=== PATIENT | female | born 1950 | race Caucasian/White ===

== ENCOUNTER 2017-01-31 12:29 | Inpatient (IN) | payer BC ==
[~2017-01-31] VITALS: Ht 160 cm; Wt 80.0 kg
[2017-01-31] MEDS ORDERED: IPRATROPIUM (NEB) 0.5 MG/2.5 ML AMP NEB STA (12:37)
[2017-01-31] MEDS ORDERED: ALBUTEROL 0.083% (NEB) 2.5 MG/3 ML AMP NEB STA (12:37)
[2017-01-31] MEDS ORDERED: DILTIAZEM 25 MG INJ IV ONE (13:00)
[2017-01-31 13:05] LABS: BASOPHILS % 0.2 % (0.0-2.0); EOSINOPHILS # 0.1 10^3/ul (0.0-0.5); HEMATOCRIT 41.1 % (37.0-47.0); HEMOGLOBIN 12.6 g/dl (12.0-16.0); LYMPHOCYTES # 2.6 10^3/ul (0.8-2.9); LYMPHOCYTES % 25.6 % (15.0-51.0); MEAN CORPUSCULAR HEMOGLOBIN 25.9 pg (29.0-33.0); MEAN CORPUSCULAR HGB CONC 30.7 g/dl (32.0-37.0); MEAN CORPUSCULAR VOLUME 84.4 fl (82.0-101.0); MEAN PLATELET VOLUME 10.7 fl (7.4-10.4); MONOCYTE # 0.7 10^3/ul (0.3-0.9); MONOCYTES % 6.4 % (0.0-11.0); NEUTROPHILS % 66.4 % (39.0-77.0); PLATELET COUNT 252 10^3/UL (140-415); RED BLOOD COUNT 4.87 10^6/ul (4.20-5.40); RED CELL DISTRIBUTION WIDTH 14.2 % (11.5-14.5); WHITE BLOOD COUNT 10.2 10^3/ul (4.8-10.8)
[2017-01-31 13:21] LABS: INR 1.04; PROTIME 13.6 Sec (12.2-14.2); PT RATIO 1.1
[2017-01-31 13:23] LABS: PARTIAL THROMBOPLASTIN TIME 31.2 Sec (25.0-35.0)
[2017-01-31 13:34] LABS: ANION GAP 14 (8-16); BLOOD UREA NITROGEN 19 mg/dl (7-20); CALCIUM 8.9 mg/dl (8.4-10.2); CARBON DIOXIDE 26 mmol/L (21-31); CHLORIDE 105 mmol/L (97-110); CREATININE 0.59 mg/dl (0.44-1.00); GLUCOSE 135 mg/dl (70-220); POTASSIUM 3.8 mmol/L (3.5-5.1); SODIUM 141 mmol/L (135-144)
--- NOTE | 2017-01-31 13:34 | RADRPT ---
PROCEDURE: Chest x-ray CLINICAL INDICATION: Chest pain TECHNIQUE: Chest single view COMPARISON: None FINDINGS: There is mild cardiomegaly. Mild interstitial CHF is seen. The pulmonary vessels are normal in slick iber. The lungs are clear. The costophrenic angles are sharp. The visualized bony thorax is unrem arkable. IMPRESSION: 1. Cardiomegaly with mild interstitial CHF RPTAT: HH .Yury Valdivia MD, MD Date Time Electronically viewed and signed by .Yury Valdivia MD, on 01/31/2017 13:33 .W/
[2017-01-31 13:39] LABS: B-TYPE NATRIURETIC PEPTIDE 820 PG/ML (0-125)
[2017-01-31 13:41] LABS: TROPONIN-I < 0.012 ng/ml (0.00-0.12)
[2017-01-31] MEDS ORDERED: ASPIRIN 81 MG TAB PO ONE (14:00)
[2017-01-31] MEDS ORDERED: FUROSEMIDE 20 MG INJ IV ONE (14:00)
--- NOTE | 2017-01-31 14:22 | ERA ---
ER Documentation Chief Complaint Date/Time DATE: 01/31/17 TIME: 14:18 Chief Complaint SOB WITH WHEEZING WHILE AT URGENT CARE. SENT HERE FOR FURTHER EVAL. 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 The patient was sent for further evaluation from an urgent care because of wheezing. She denies history of asthma. She states that she has had these symptoms for "some time I do not know how long ". Patient describes bilateral lower extremity swelling. She is also found to be in atrial fibrillation and is unsure if this is new or old. She states that she does not take blood thinning medication. Additionally she states that she is having vaginal bleeding. She is unsure for how long. The patient is not a very good historian. ROS All systems reviewed and are negative except as per history of present illness. Medications Home Meds No Active Prescriptions or Reported Meds Allergies Allergies: Coded Allergies: No Known Allergy (Unverified , 01/31/17) PMhx/Soc Medical and Surgical Hx: pt denies Medical Hx, pt denies Surgical Hx Hx Alcohol Use: No Hx Substance Use: No Hx Tobacco Use: No Smoking Status: Never smoker FmHx Family History: No diabetes Physical Exam Vitals Vital Signs Date Time Temp Pulse Resp B/P Pulse Ox O2 Delivery O2 Flow Rate FiO2 01/31/17 13:16 102 22 97 01/31/17 13:12 Nasal Cannula 01/31/17 12:36 98.6 132 21 127/68 97 Physical Exam General: Well developed, well nourished, no acute distress Head: Normocephalic, atraumatic. Eyes: Pupils equally reactive, EOM intact ENT: Moist mucous membranes Neck: Supple, no lymphadenopathy Respiratory: Scant wheezing bilaterally, no distress Cardiovascular: Irregularly irregular, tachycardia, no murmurs, rubs, or gallops Abdominal: Soft, non-tender, non-distended, no peritoneal signs : Deferred MSK: No edema, no unilateral swelling, 5/5 strength Neurologic: Alert and oriented, moving all extremities, normal speech, no focal weakness, no cerebellar signs Skin: No rash Psych: Normal mood Result Diagram: 01/31/17 1255 01/31/17 1255 Results 24 hrs Laboratory Tests Test 01/31/17 12:55 White Blood Count 10.210^3/ul Red Blood Count 4.8710^6/ul Hemoglobin 12.6g/dl Hematocrit 41.1% Mean Corpuscular Volume 84.4fl Mean Corpuscular Hemoglobin 25.9pg Mean Corpuscular Hemoglobin Concent 30.7g/dl Red Cell Distribution Width 14.2% Platelet Count 13122^3/UL Mean Platelet Volume 10.7fl Neutrophils % 66.4% Lymphocytes % 25.6% Monocytes % 6.4% Eosinophils % 1.0% Basophils % 0.2% Nucleated Red Blood Cells % 0.0/100WBC Neutrophils # (Manual) 6.710^3/ul Lymphocytes # 2.610^3/ul Monocytes # 0.710^3/ul Eosinophils # 0.110^3/ul Basophils # 0.010^3/ul Nucleated Red Blood Cells # 0.010^3/ul Prothrombin Time 13.6Sec Prothrombin Time Ratio 1.1 INR International Normalized Ratio 1.04 Activated Partial Thromboplast Time 31.2Sec Sodium Level 141mmol/L Potassium Level 3.8mmol/L Chloride Level 105mmol/L Carbon Dioxide Level 26mmol/L Anion Gap 14 Blood Urea Nitrogen 19mg/dl Creatinine 0.59mg/dl Glucose Level 135mg/dl Calcium Level 8.9mg/dl Troponin I < 0.012ng/ml B-Type Natriuretic Peptide 820PG/ML Current Medications Medications (Trade) Dose Ordered Sig/Gil Route PRN Reason Start Time Stop Time Status Last Admin Dose Admin Albuterol (Proventil 0.083% (Neb)) 2.5 mg ONCE STAT NEB 01/31/17 12:37 01/31/17 12:38 DC 01/31/17 13:14 Ipratropium [place] (Atrovent 0.02% (Neb)) 0.5 mg ONCE STAT NEB 01/31/17 12:37 01/31/17 12:38 DC 01/31/17 13:14 Diltiazem HCl (Cardizem Iv) 10 mg ONCE ONCE IV 01/31/17 13:00 01/31/17 13:01 DC 01/31/17 13:04 Aspirin (Aspirin) 324 mg ONCE ONCE PO 01/31/17 14:00 01/31/17 14:01 DC 01/31/17 14:12 Furosemide (Lasix) 20 mg ONCE ONCE IV 01/31/17 14:00 01/31/17 14:01 DC 01/31/17 14:12 Ondansetron HCl (Zofran Inj) 4 mg ER BRIDGE PRN IV NAUSEA AND/OR VOMITING 01/31/17 14:30 02/01/17 14:29 Acetaminophen (Tylenol Tab) 650 mg ER BRIDGE PRN PO MILD PAIN/FEVER 01/31/17 14:30 02/01/17 14:29 Procedures/MDM EKG, MONITORS, & DIAGNOSTIC IMAGING: EKG: I reviewed and interpreted a 12-lead EKG. Rhythm: Atrial fibrillation with rapid ventricular response ectopy: None Intervals: No abnormalities ST segments: No elevations or depressions T waves: No contiguous inversions Chest x-ray: I reviewed and interpreted a 1 view of the chest Mediastinum: No enlargement Cardiac silhouette: cardiomegaly Airspace: Interstitial process and pulmonary edema bones: No evidence of fracture LAB INTERPRETATION: Negative troponin, elevated BNP MEDICAL DECISION MAKING: The patient presents with signs and symptoms concerning for CHF, possibly new onset atrial fibrillation with RVR. The patient is a very poor historian and cannot describe her history. She is unsure what medication she takes and does not have them with her. She has never been here before. Additionally the patient is having postmenopausal vaginal bleeding. She has no evidence of symptomatic anemia however the patient was advised she needs to follow-up with an REPAIRER EVAPORATOR for hysteroscopy and biopsy to rule out malignancy. ER COURSE: The patient was given Cardizem 10 mg IV with rate control. The patient was also given Lasix and aspirin. The patient will benefit from hospitalization for further evaluation, echocardiogram. The patient also requires risk stratification for anticoagulation. Given her limited history, unknown cardiomyopathy or bleeding risk factors I cannot make accurate decision in the emergency department as to anticoagulation, different inpatient team would be appropriate. I kept the patient and/or family informed of laboratory and diagnostic imaging results throughout the emergency room course. DISPOSITION PLAN: Telemetry admission for management of A. fib with RVR, CHF CONSULTATION: Accepting care team and consultations: I discussed the current laboratory data, diagnostic imaging and emergency care provided. Admitting team: Dr. Gilbert Admitting team indication: Insurance directed Departure Diagnosis: Primary Impression: Shortness of breath Additional Impressions: CHF (congestive heart failure) Qualified Code: I50.9 - Acute congestive heart failure, unspecified congestive heart failure type Atrial fibrillation with rapid ventricular response Postmenopausal vaginal bleeding Condition: Stable BORM, SHAN A., MD Jan 31, 2017 14:22
[2017-01-31] MEDS ORDERED: ACETAMINOPHEN 325 MG TAB PO PRN ×2 (14:30→18:30)
[2017-01-31] MEDS ORDERED: ONDANSETRON 4 MG INJ IV PRN ×2 (14:30→18:30)
[2017-01-31] MEDS ORDERED: ALBUTEROL/IPRATROPIUM (NEB) 3 ML AMP HHN PRN (18:30)
[2017-01-31] MEDS ORDERED: MAGNESIUM HYDROXIDE 30ML CUP PO PRN (18:30)
[2017-01-31] MEDS ORDERED: NA PHOSPHATE/BIPHOS 133 ML ENEMA PR PRN (18:30)
[2017-01-31] MEDS ORDERED: NITROGLYCERIN (SL) 0.4 MG TAB SL PRN (18:30)
[2017-01-31] MEDS ORDERED: NACL 0.9% 3 ML SYG IV SCH (18:30)
[2017-01-31] MEDS ORDERED: HYDROCODONE/APAP (5/325) TAB PO PRN (18:30)
[2017-01-31] MEDS ORDERED: LORAZEPAM 2 MG INJ IV PRN (18:30)
[2017-01-31] MEDS ORDERED: morphine 2 MG INJ IV PRN (18:30)
[2017-01-31] MEDS ORDERED: hydrALAzine 20 MG INJ IV PRN (18:30)
[2017-01-31 19:46] LABS: CREATINE KINASE 173 IU/L (23-200)
[2017-01-31 19:59] LABS: CK-MB 1.59 ng/ml (0.0-2.4)
[2017-01-31 20:07] LABS: TROPONIN-I < 0.012 ng/ml (0.00-0.12)
[2017-01-31 20:14] VITALS: PULSE 94
--- NOTE | 2017-01-31 20:20 | HP ---
DATE OF ADMISSION: 01/31/2017 CHIEF COMPLAINT: Chest pain, shortness of breath. HISTORY OF PRESENT ILLNESS: This is a 66-year-old female with a past medical history of hypertension and anxiety, who has been having shortness of breath symptoms going on for the last few days. She also has been feeling some mild palpitations. Denies any headaches or dizziness or loss of consciousness. No upper GI bleeding. No nausea or vomiting. No fevers or chills. She has been complaining, however, of vaginal bleeding for the last few days that appears to be new. She decided to come to the ER today, but not before going to an urgent care because she was complaining of some wheezing symptoms, but denies any history of any asthma. She has also noted some lower extremity swelling as well that appears to be new. When she came in to the ER today, she was found with signs of fluid in her chest x-ray, cardiomegaly with mild interstitial CHF, and was given Lasix in the ER. As well, she was found to be in atrial fibrillation with RVR and was given Cardizem, which helped bring her heart rate down to the normal range. PAST MEDICAL HISTORY: As above. ALLERGIES: NO KNOWN DRUG ALLERGIES. HOME MEDICATIONS: None. PAST SURGICAL HISTORY: She had varicose vein surgery 14 days ago. She has had a hysterectomy in the past. FAMILY HISTORY: Noncontributory. SOCIAL HISTORY: Negative for smoking, drinking, IV drug abuse. Vital signs T-max 98.6, pulse 94, 132, respirations 18, and 21, blood pressure is 136/71, sating 99 percent 2 L nasal cannula. PHYSICAL EXAMINATION: VITAL SIGNS: T-max 98.6, pulse 94 to 132, respirations 18 to 21, blood pressure 136/71, sating 99 percent on 2 L nasal cannula. GENERAL: Patient is a female lying in bed, obese, in no acute distress. HEENT: Pupils equal, round, react to light. Extraocular muscles intact. NECK: Supple. No thyromegaly. LUNGS: Slight crackles heard in the bilateral bases. No wheezes. CARDIOVASCULAR: S1, S2 heard, irregular. ABDOMEN: Soft, nontender, nondistended. Normal bowel sounds. No rebound or guarding. MUSCULOSKELETAL: One plus pitting edema bilateral lower extremities to mid calf. NEUROLOGIC: No focal deficits. LABORATORY DATA: CBC is normal. The basic metabolic panel is normal. The BNP is 822. Troponins negative times 1. Coags are normal. ASSESSMENT AND PLAN: A 66-year-old female coming in with congestive heart failure and atrial fibrillation with rapid ventricular rate, also with vaginal bleeding. 1. Shortness of breath secondary to combination of congestive heart failure and possibly atrial fibrillation. Admit the patient to telemetry floor, check TSH and lipid panel. Started on Cardizem. Will continue that, titrate to keep the heart rate less than 100. Will get a cardiology consult, check 2D echocardiogram as well, put her on Lasix, keep head of bed greater than 30 degrees, morphine, oxygen, nitroglycerin p.r.n., monitor ins and outs, get PT consult as well. 2. Anxiety. Ativan p.r.n. 3. Vaginal bleeding. Will get a pelvic ultrasound. 4. Hold all anticoagulants as well. Dictated By: Sonny Gilbert MD /[email or web address] /Document#: [id number]
[2017-01-31 20:54] VITALS: BP 98/56; RESP 18
[2017-01-31 21:00] VITALS: Ht 160 cm; Wt 80.0 kg
[2017-01-31] MEDS ORDERED: HEPARIN 5,000 UNIT/0.5 ML VIAL SC SCH (21:00)
[2017-01-31] MEDS: DILTIAZEM-D5W 125MG/125ML DRIP 125 ML IV SCH (21:28)
[2017-02-01] VITALS (14 sets, daily range): BP systolic 97–164; BP diastolic 59–88; PULSE 65–101; RESP 18–20
[2017-02-01 01:39] LABS: CREATINE KINASE 208 IU/L (23-200)
[2017-02-01 01:52] LABS: CK-MB 1.33 ng/ml (0.0-2.4)
[2017-02-01 01:53] LABS: TROPONIN-I < 0.012 ng/ml (0.00-0.12)
[2017-02-01] MEDS: PANTOPRAZOLE (EC) 40 MG TAB PO SCH (06:16)
[2017-02-01 07:46] LABS: BASOPHILS % 0.1 % (0.0-2.0); EOSINOPHILS # 0.1 10^3/ul (0.0-0.5); EOSINOPHILS % 1.7 % (0.0-7.0); HEMATOCRIT 39.9 % (37.0-47.0); HEMOGLOBIN 12.5 g/dl (12.0-16.0); LYMPHOCYTES # 2.1 10^3/ul (0.8-2.9); LYMPHOCYTES % 28.4 % (15.0-51.0); MEAN CORPUSCULAR HEMOGLOBIN 26.5 pg (29.0-33.0); MEAN CORPUSCULAR HGB CONC 31.3 g/dl (32.0-37.0); MEAN CORPUSCULAR VOLUME 84.7 fl (82.0-101.0); MEAN PLATELET VOLUME 10.9 fl (7.4-10.4); MONOCYTE # 0.5 10^3/ul (0.3-0.9); NEUTROPHILS % 63.5 % (39.0-77.0); PLATELET COUNT 238 10^3/UL (140-415); RED BLOOD COUNT 4.71 10^6/ul (4.20-5.40); WHITE BLOOD COUNT 7.5 10^3/ul (4.8-10.8)
[2017-02-01 08:16] LABS: CALCIUM 8.6 mg/dl (8.4-10.2); CHOL/HDL RATIO 3.8 RATIO; CREATININE 0.55 mg/dl (0.44-1.00); MAGNESIUM 1.9 mg/dl (1.7-2.5); POTASSIUM 4.1 mmol/L (3.5-5.1)
--- NOTE | 2017-02-01 08:29 | RADRPT ---
PROCEDURE: US Pelvis. CLINICAL INDICATION: Postmenopausal bleeding. TECHNIQUE: Multiple sonographic images of the pelvis were obtained utilizing hampton scale, Doppler a nd color flow imaging with transabdominal and endovaginal technique. The images were reviewed on a PACS workstation. COMPARISON: None. FINDINGS: The uterus is visualized and measures 11.4 x 5.9 x 7.3 cm. The endometrial echo complex measures 25. 4 mm in thickness. A 7 mm hypoechoic nodular echogenicity is identified in the superior aspect of th e endometrium. No vascularity is seen in this lesion. The ovaries are not well visualized. No adnexal masses or pelvic free fluid are noted. IMPRESSION: Markedly thickened endometrium for a postmenopausal woman. Endometrial malignancy is not excluded. Consultation with gynecology and potentially correlation with endometrial biopsy is recommended. 7 mm hypoechoic nodular echogenicity in the superior aspect of the endometrium. This could reflect focal clot versus a small submucosal fibroid or potentially endometrial polyp. Ovaries not well visualized. If characterization of this structure is needed repeat exam or MRI is r ecommended. If further characterization of the organs of the pelvis is needed MRI should be considered. RPTAT: AA .Fernando Angel MD, MD Date Time Electronically viewed and signed by .Fernando Angel MD, MD on 02/01/2017 08:28 .P/
[2017-02-01 09:41] LABS: THYROID STIMULATING HORMONE 1.5 MIU/L (0.465-4.680)
[2017-02-01] MEDS: FUROSEMIDE 40 MG INJ IV SCH (11:16)
[2017-02-01] MEDS: DILTIAZEM 60 MG TAB PO SCH ×2 (15:20→21:50)
--- NOTE | 2017-02-01 16:11 | PN ---
Date/Time of Note Date/Time of Note DATE: 02/01/17 TIME: 15:59 Assessment/Plan VTE Prophylaxis VTE Prophylaxis Intervention: contraindicated Lines/[facility]ters [facility] [place] Assessment/Plan Chief Complaint/Hosp Course ASSESSMENT AND PLAN: A 66-year-old female coming in with congestive heart failure and atrial fibrillation with rapid ventricular rate, also with vaginal bleeding. 1. Shortness of breath - secondary to combination of congestive heart failure and possibly atrial fibrillation. Troponins are negative 3, still waiting for official echocardiogram report. Per discussion with cardiology team today, will also recommend getting a d-dimer to rule out PE. Getting IV Lasix as well has less shortness of breath symptoms overall. -Follow-up TSH and lipid panel. -We will put back patient on IV Cardizem, also now on p.o. Cardizem as well, monitor heart rate will continue that, titrate to keep the heart rate less than 100. -Continue Lasix for CHF, follow-up echocardiogram report, keep head of bed greater than 30 degrees, morphine, oxygen, nitroglycerin p.r.n., monitor ins and outs -We will follow up PT consult as well. 2. Anxiety. Ativan p.r.n. 3. Vaginal bleeding -appreciate [facility] consult recommendations, based on what the pelvic ultrasound showed. -They are recommending DNC procedure tomorrow with possible endometrial biopsy to rule out any malignancy. -Hold all anticoagulants as well. Problems: Subjective 24 Hr Interval Summary Free Text/Dictation Patient seen by cardiology and [facility] team today, just in the last few minutes has gone back into atrial fibrillation with RVR. Exam/Review of Systems Vital Signs Vitals Vital Signs Date Time Temp Pulse Resp B/P Pulse Ox O2 Delivery O2 Flow Rate FiO2 02/01/17 15:41 98.0 122 18 137/88 96 01/31/17 13:12 Nasal Cannula Intake and Output 01/31/17 01/31/17 02/01/17 15:00 23:00 07:00 Intake Total 140 ml Balance 140 ml Exam GENERAL: Patient is a female lying in bed, obese, in no acute distress. HEENT: Pupils equal, round, react to light. Extraocular muscles intact. NECK: Supple. No thyromegaly. LUNGS: Slight crackles heard in the bilateral bases. No wheezes. CARDIOVASCULAR: S1, S2 heard, irregular. ABDOMEN: Soft, nontender, nondistended. Normal bowel sounds. No rebound or guarding. MUSCULOSKELETAL: One plus pitting edema bilateral lower extremities to mid calf. NEUROLOGIC: No focal deficits. Results Result Diagram: 02/01/17 0715 02/01/17 0717 Results 24 hrs Laboratory Tests Test 01/31/17 18:28 01/31/17 19:16 02/01/17 00:38 02/01/17 07:15 Free Thyroxine 0.81 Creatine Kinase 173 208 H Creatine Kinase Index 0.9 0.6 Creatinine Kinase MB (Mass) 1.59 1.33 Troponin I < 0.012 < 0.012 White Blood Count 7.5 # Red Blood Count 4.71 Hemoglobin 12.5 Hematocrit 39.9 Mean Corpuscular Volume 84.7 Mean Corpuscular Hemoglobin 26.5 L Mean Corpuscular Hemoglobin Concent 31.3 L Red Cell Distribution Width 14.0 Platelet Count 238 Mean Platelet Volume 10.9 H Neutrophils % 63.5 Lymphocytes % 28.4 Monocytes % 6.0 Eosinophils % 1.7 Basophils % 0.1 Nucleated Red Blood Cells % 0.0 Neutrophils # (Manual) 4.8 Lymphocytes # 2.1 Monocytes # 0.5 Eosinophils # 0.1 Basophils # 0.0 Nucleated Red Blood Cells # 0.0 Hemoglobin A1c 6.5 H Test 02/01/17 07:17 Sodium Level 141 Potassium Level 4.1 Chloride Level 105 Carbon Dioxide Level 26 Anion Gap 14 Blood Urea Nitrogen 16 Creatinine 0.55 Glucose Level 92 # Calcium Level 8.6 Phosphorus Level 4.0 Magnesium Level 1.9 Triglycerides Level 82 Cholesterol Level 111 LDL Cholesterol, Calculated 66 HDL Cholesterol 29 L Cholesterol/HDL Ratio 3.8 Thyroid Stimulating Hormone (TSH) 1.500 Medications Medications Current Medications Ondansetron HCl (Zofran Inj) 4 mg Q6H PRN IV NAUSEA AND/OR VOMITING; Start 01/31 at 18:30 Acetaminophen (Tylenol Tab) 650 mg Q6H PRN PO PAIN LEVEL 1-3 OR FEVER; Start at 18:30 Acetaminophen/ Hydrocodone Bitart ([place] (5/325)) 1 tab Q6H PRN PO MODERATE PAIN LEVEL 4-6; Start 01/31/17 at 18:30 Morphine Sulfate (morphine) 2 mg Q4H PRN IV SEVERE PAIN LEVEL 7-10; Start at 18:30 Docusate Sodium (Colace) 100 mg Q12H PRN PO CONSTIPATION; Start 01/31/17 at 18: 30 Magnesium Hydroxide (Milk Of Mag) 30 ml DAILY PRN PO CONSTIPATION; Start at 18:30 Sodium Biphosphate/ Sodium Phosphate (Fleet Enema) 133 ml DAILY PRN OR CONSTIPATION; Start 01/31/17 at 18:30 Pantoprazole (Protonix Tab) 40 mg DAILY@06 PO Last administered on 02/01/17 06: 16; Admin Dose 40 MG; Start 02/01/17 at 06:00 Lorazepam (Ativan) 0.5 mg Q6H PRN IV ANXIETY; Start 01/31/17 at 18:30 Hydralazine HCl (Apresoline) 10 mg Q6H PRN IV ELEVATED BLOOD PRESSURE; Start at 18:30 Nitroglycerin (Nitroglycerin (Sl Tab) 0.4 Mg) 1 tab Q5M PRN SL ANGINA; Start at 18:30 Furosemide 40 mg 40 mg DAILY IV Last administered on 02/01/17 11:16; Admin Dose 40 MG; Start 02/01/17 at 09:00 Diltiazem HCl (Cardizem-D5W 125 Mg/125 ml Drip) 125 ml @ 5 mls/hr TITRATE IV Last administered on 01/31/17 21:28; Admin Dose 5 MLS/HR; Start 01/31/17 at 18:30 Diltiazem HCl (Cardizem) 60 mg Q8 PO Last administered on 02/01/17 15:20; Admin Dose 60 MG; Start 02/01/17 at 14:00 AUREA CARTER Feb 01, 2017 16:11
[2017-02-01] MEDS: DILTIAZEM-D5W 125MG/125ML DRIP 125 ML IV SCH ×2 (16:21→16:49)
[2017-02-01 16:36] LABS: D-DIMER 687.01 ng/ml (<460)
--- NOTE | 2017-02-01 17:51 | CONS ---
Date/Time of Note Date/Time of Note DATE: 02/01/17 TIME: 17:31 Consultation Date/Type/Reason Admit Date/Time February 01, 2017 Gynecological consult This patient is a 67 years old 3 para 3 postmenopausal who was admitted in telemetry due to her complaint of shortness of breath and evidence of a tachypnea ,arrhythmia and atrial fibrillation or even possible heart failure . 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 The following is a brief description of this patient,s condition by our hospitalist Dr. Gilbert: <CHIEF COMPLAINT: Chest pain, shortness of breath. This is a 66-year-old female with a past medical history of hypertension and anxiety, who has been having shortness of breath symptoms going on for the last few days. She also has been feeling some mild palpitations. Denies any headaches or dizziness or loss of consciousness. No upper GI bleeding. No nausea or vomiting. No fevers or chills. She has been complaining, however, of vaginal bleeding for the last few days that appears to be new. She decided to come to the ER today, but not before going to an urgent care because she was complaining of some wheezing symptoms, but denies any history of any asthma. She has also noted some lower extremity swelling as well that appears to be new. When she came in to the ER today, she was found with signs of fluid in her chest x-ray, cardiomegaly with mild interstitial CHF, and was given Lasix in the ER. As well, she was found to be in atrial fibrillation with RVR and was given Cardizem, which helped bring her heart rate down to the normal range.> On my examination ; she is a fairly obese patient.. Her abdomen is soft .no large mass could be palpated . on pelvic examination vulva and vagina appears to be normal the cervix is fragmented as a result of the previous lacerations the size of the uterus is about 6-7 cm no large mass could be identified on this examination I did not see any blood inside the vagina however patient describes bleeding past few days Laboratory Tests Test 01/31/17 18:28 01/31/17 19:16 02/01/17 00:38 02/01/17 07:15 Free Thyroxine 0.81ng/dl Creatine Kinase 173IU/L 208IU/L Creatine Kinase Index 0.9 0.6 Creatinine Kinase MB (Mass) 1.59ng/ml 1.33ng/ml Troponin I < 0.012ng/ml < 0.012ng/ml White Blood Count 7.510^3/ul Red Blood Count 4.7110^6/ul Hemoglobin 12.5g/dl Hematocrit 39.9% Mean Corpuscular Volume 84.7fl Mean Corpuscular Hemoglobin 26.5pg Mean Corpuscular Hemoglobin Concent 31.3g/dl Red Cell Distribution Width 14.0% Platelet Count 60623^3/UL Mean Platelet Volume 10.9fl Neutrophils % 63.5% Lymphocytes % 28.4% Monocytes % 6.0% Eosinophils % 1.7% Basophils % 0.1% Nucleated Red Blood Cells % 0.0/100WBC Neutrophils # (Manual) 4.810^3/ul Lymphocytes # 2.110^3/ul Monocytes # 0.510^3/ul Eosinophils # 0.110^3/ul Basophils # 0.010^3/ul Nucleated Red Blood Cells # 0.010^3/ul Hemoglobin A1c 6.5% Test 02/01/17 07:17 02/01/17 16:11 Sodium Level 141mmol/L Potassium Level 4.1mmol/L Chloride Level 105mmol/L Carbon Dioxide Level 26mmol/L Anion Gap 14 Blood Urea Nitrogen 16mg/dl Creatinine 0.55mg/dl Glucose Level 92mg/dl Calcium Level 8.6mg/dl Phosphorus Level 4.0mg/dl Magnesium Level 1.9mg/dl Triglycerides Level 82mg/dl Cholesterol Level 111mg/dl LDL Cholesterol, Calculated 66mg/dl HDL Cholesterol 29mg/dl Cholesterol/HDL Ratio 3.8RATIO Thyroid Stimulating Hormone (TSH) 1.500MIU/L D-Dimer 687.01ng/ml D-Dimer Comment Current Medications Medications (Trade) Dose Ordered Sig/Gil Route PRN Reason Start Time Stop Time Status Last Admin Dose Admin Albuterol (Proventil 0.083% (Neb)) 2.5 mg ONCE STAT NEB 01/31/17 12:37 01/31/17 12:38 DC 01/31/17 13:14 2.5 MG Ipratropium Lorida (Atrovent 0.02% (Neb)) 0.5 mg ONCE STAT NEB 01/31/17 12:37 01/31/17 12:38 DC 01/31/17 13:14 0.5 MG Diltiazem HCl (Cardizem Iv) 10 mg ONCE ONCE IV 01/31/17 13:00 01/31/17 13:01 DC 01/31/17 13:04 10 MG Aspirin (Aspirin) 324 mg ONCE ONCE PO 01/31/17 14:00 01/31/17 14:01 DC 01/31/17 14:12 324 MG Furosemide (Lasix) 20 mg ONCE ONCE IV 01/31/17 14:00 01/31/17 14:01 DC 01/31/17 14:12 20 MG Ondansetron HCl (Zofran Inj) 4 mg ER BRIDGE PRN IV NAUSEA AND/OR VOMITING 01/31/17 14:30 01/31/17 18:45 DC Acetaminophen (Tylenol Tab) 650 mg ER BRIDGE PRN PO MILD PAIN/FEVER 01/31/17 14:30 01/31/17 18:45 DC IV Flush (NS 3 ml) 3 ml PER PROTOCOL IV 01/31/17 18:30 Ondansetron HCl (Zofran Inj) 4 mg Q6H PRN IV NAUSEA AND/OR VOMITING 01/31/17 18:30 Acetaminophen (Tylenol Tab) 650 mg Q6H PRN PO PAIN LEVEL 1-3 OR FEVER 01/31/17 18:30 Acetaminophen/ Hydrocodone Bitart ([place] (5/325)) 1 tab Q6H PRN PO MODERATE PAIN LEVEL 4-6 01/31/17 18:30 Morphine Sulfate (morphine) 2 mg Q4H PRN IV SEVERE PAIN LEVEL 7-10 01/31/17 18:30 Docusate Sodium (Colace) 100 mg Q12H PRN PO CONSTIPATION 01/31/17 18:30 Magnesium Hydroxide (Milk Of Mag) 30 ml DAILY PRN PO CONSTIPATION 01/31/17 18:30 Sodium Biphosphate/ Sodium Phosphate (Fleet Enema) 133 ml DAILY PRN [place] CONSTIPATION 01/31/17 18:30 Pantoprazole (Protonix Tab) 40 mg DAILY@06 PO 02/01/17 06:00 02/01/17 06:16 40 MG Heparin Sodium (Porcine) (Heparin (5000 Units/0.5 ml)) 5,000 unit Q12 SC 01/31/17 21:00 01/31/17 21:00 DC Lorazepam (Ativan) 0.5 mg Q6H PRN IV ANXIETY 01/31/17 18:30 Albuterol/ Ipratropium (Duoneb) 3 ml Q4H RESP THERAPY PRN HHN SHORTNESS OF BREATH 01/31/17 18:30 Hydralazine HCl (Apresoline) 10 mg Q6H PRN IV ELEVATED BLOOD PRESSURE 01/31/17 18:30 Nitroglycerin (Nitroglycerin (Sl Tab) 0.4 Mg) 1 tab Q5M PRN SL ANGINA 01/31/17 18:30 Furosemide 40 mg 40 mg DAILY IV 02/01/17 09:00 02/01/17 11:16 40 MG Diltiazem HCl (Cardizem-D5W 125 Mg/125 ml Drip) 125 ml @ 5 mls/hr TITRATE IV 01/31/17 18:30 02/01/17 16:49 10 MLS/HR Diltiazem HCl (Cardizem) 60 mg Q8 PO 02/01/17 14:00 02/01/17 15:20 60 MG Due to her multiple cardiovascular symptoms she is supposed to be seen by a micropaleontologist and will stay in telemetry . Through an linux server engineer I explained her gynecological condition and the need for a endometrial biopsy or D&C to rule out possible malignancy. She is scheduled to have this procedure done tomorrow around 10 to 11:00 in the morning. Social History Smoking Status: Never smoker Exam/Review of Systems Vital Signs Vitals Vital Signs Date Time Temp Pulse Resp B/P Pulse Ox O2 Delivery O2 Flow Rate FiO2 02/01/17 16:57 101 02/01/17 15:41 98.0 18 137/88 96 01/31/17 13:12 Nasal Cannula Intake and Output 01/31/17 01/31/17 02/01/17 15:00 23:00 07:00 Intake Total 140 ml Balance 140 ml Results Result Diagram: 02/01/1715 02/01/17716 Results 24 hrs Laboratory Tests Test 01/31/17 18:28 01/31/17 19:16 02/01/17 00:38 02/01/17 07:15 Free Thyroxine 0.81 Creatine Kinase 173 208 H Creatine Kinase Index 0.9 0.6 Creatinine Kinase MB (Mass) 1.59 1.33 Troponin I < 0.012 < 0.012 White Blood Count 7.5 # Red Blood Count 4.71 Hemoglobin 12.5 Hematocrit 39.9 Mean Corpuscular Volume 84.7 Mean Corpuscular Hemoglobin 26.5 L Mean Corpuscular Hemoglobin Concent 31.3 L Red Cell Distribution Width 14.0 Platelet Count 238 Mean Platelet Volume 10.9 H Neutrophils % 63.5 Lymphocytes % 28.4 Monocytes % 6.0 Eosinophils % 1.7 Basophils % 0.1 Nucleated Red Blood Cells % 0.0 Neutrophils # (Manual) 4.8 Lymphocytes # 2.1 Monocytes # 0.5 Eosinophils # 0.1 Basophils # 0.0 Nucleated Red Blood Cells # 0.0 Hemoglobin A1c 6.5 H Test 02/01/17 07:17 02/01/17 16:11 Sodium Level 141 Potassium Level 4.1 Chloride Level 105 Carbon Dioxide Level 26 Anion Gap 14 Blood Urea Nitrogen 16 Creatinine 0.55 Glucose Level 92 # Calcium Level 8.6 Phosphorus Level 4.0 Magnesium Level 1.9 Triglycerides Level 82 Cholesterol Level 111 LDL Cholesterol, Calculated 66 HDL Cholesterol 29 L Cholesterol/HDL Ratio 3.8 Thyroid Stimulating Hormone (TSH) 1.500 D-Dimer 687.01 H D-Dimer Comment Medications Medications Current Medications Ondansetron HCl (Zofran Inj) 4 mg Q6H PRN IV NAUSEA AND/OR VOMITING; Start 01/31 at 18:30 Acetaminophen (Tylenol Tab) 650 mg Q6H PRN PO PAIN LEVEL 1-3 OR FEVER; Start at 18:30 Acetaminophen/ Hydrocodone Bitart ([place] (5/325)) 1 tab Q6H PRN PO MODERATE PAIN LEVEL 4-6; Start 01/31/17 at 18:30 Morphine Sulfate (morphine) 2 mg Q4H PRN IV SEVERE PAIN LEVEL 7-10; Start at 18:30 Docusate Sodium (Colace) 100 mg Q12H PRN PO CONSTIPATION; Start 01/31/17 at 18: 30 Magnesium Hydroxide (Milk Of Mag) 30 ml DAILY PRN PO CONSTIPATION; Start at 18:30 Sodium Biphosphate/ Sodium Phosphate (Fleet Enema) 133 ml DAILY PRN [place] CONSTIPATION; Start 01/31/17 at 18:30 Pantoprazole (Protonix Tab) 40 mg DAILY@06 PO Last administered on 02/01/17t 06: 16; Admin Dose 40 MG; Start 02/01/17 at 06:00 Lorazepam (Ativan) 0.5 mg Q6H PRN IV ANXIETY; Start 01/31/17 at 18:30 Hydralazine HCl (Apresoline) 10 mg Q6H PRN IV ELEVATED BLOOD PRESSURE; Start at 18:30 Nitroglycerin (Nitroglycerin (Sl Tab) 0.4 Mg) 1 tab Q5M PRN SL ANGINA; Start at 18:30 Furosemide 40 mg 40 mg DAILY IV Last administered on 02/01/17 11:16; Admin Dose 40 MG; Start 02/01/17 at 09:00 Diltiazem HCl (Cardizem-D5W 125 Mg/125 ml Drip) 125 ml @ 5 mls/hr TITRATE IV Last administered on 02/01/17 16:49; Admin Dose 10 MLS/HR; Start 01/31/17 at 18: 30 Diltiazem HCl (Cardizem) 60 mg Q8 PO Last administered on 02/01/17 15:20; Admin Dose 60 MG; Start 02/01/17 at 14:00 ZAYDA MARRUFO MD Feb 01, 2017 17:46
[2017-02-01] MEDS ORDERED: LORAZEPAM 1 MG TAB PO PRN (23:00)
[2017-02-02] VITALS (26 sets, daily range): BP systolic 90–143; BP diastolic 56–80; PULSE 66–113; RESP 15–26
[2017-02-02] MEDS: DILTIAZEM-D5W 125MG/125ML DRIP 125 ML IV SCH ×2 (02:02→22:55)
[2017-02-02] MEDS: PANTOPRAZOLE (EC) 40 MG TAB PO SCH (06:06)
[2017-02-02] MEDS: DILTIAZEM 60 MG TAB PO SCH ×3 (06:07→21:48)
[2017-02-02 07:42] LABS: RED BLOOD COUNT 5.06 10^6/ul (4.20-5.40); WHITE BLOOD COUNT 8.1 10^3/ul (4.8-10.8)
[2017-02-02 07:43] LABS: BASOPHILS % 0.2 % (0.0-2.0); EOSINOPHILS # 0.1 10^3/ul (0.0-0.5); EOSINOPHILS % 1.5 % (0.0-7.0); HEMATOCRIT 42.3 % (37.0-47.0); HEMOGLOBIN 13.2 g/dl (12.0-16.0); LYMPHOCYTES # 1.8 10^3/ul (0.8-2.9); LYMPHOCYTES % 21.9 % (15.0-51.0); MEAN CORPUSCULAR HEMOGLOBIN 26.1 pg (29.0-33.0); MEAN CORPUSCULAR HGB CONC 31.2 g/dl (32.0-37.0); MEAN CORPUSCULAR VOLUME 83.6 fl (82.0-101.0); MEAN PLATELET VOLUME 10.9 fl (7.4-10.4); MONOCYTE # 0.5 10^3/ul (0.3-0.9); MONOCYTES % 5.7 % (0.0-11.0); NEUTROPHILS % 70.3 % (39.0-77.0); PLATELET COUNT 279 10^3/UL (140-415); RED CELL DISTRIBUTION WIDTH 14.4 % (11.5-14.5)
[2017-02-02 08:01] LABS: CALCIUM 9.1 mg/dl (8.4-10.2); CREATININE 0.65 mg/dl (0.44-1.00)
[2017-02-02] MEDS ORDERED: PROPOFOL 20 ML ONE (08:59)
[2017-02-02] MEDS: FUROSEMIDE 40 MG INJ IV SCH (09:00)
[2017-02-02] MEDS ORDERED: LIDOCAINE 2% (SDV) 5 ML INJ ONE (09:03)
[2017-02-02] MEDS ORDERED: FENTAnyl 50 MCG/ML VIAL ONE (09:04)
[2017-02-02] MEDS ORDERED: DEXAMETHASONE 4 MG/ML 1 ML INJ ONE (09:37)
[2017-02-02] MEDS ORDERED: ONDANSETRON 4 MG INJ ONE (09:37)
[2017-02-02] MEDS ORDERED: CEFAZOLIN 1 GM INJ ONE (09:38)
[2017-02-02] MEDS ORDERED: KETOROLAC 30 MG INJ ONE (09:40)
--- NOTE | 2017-02-02 10:00 | OPR ---
Date/Time of Note Date/Time of Note DATE: 02/02/17 TIME: 09:51 Operative Report Free Text/Dictation February 02, 2017 Operative report Procedure: Dilatation and curettage Preoperative Diagnosis Shortness of breath congestive heart failure possible atrial fibrillation Postmenopausal vaginal bleeding Rule out endometrial cancer This patient is a 66 years old female 3 para 3 who was admitted in the hospital with shortness of breath. cardiac arrhythmia tachycardia and history of 3 days vaginal bleeding Is being worked up and treated by internal medicine as well as the cardiology today she is here to have a dilatation and curettage mostly endometrial biopsy to rule out endometrial cancer Under satisfactory general anesthesia patient was placed in lithotomy position vaginal area were prepped and patient was draped. A uterine sound was passed easily through the cervix and the endometrial was about 6-7 cm in depth. The anterior lip of the cervix was picked up with tenaculum and using flexible plastic cannula 6 mm in diameter were inserted and suctioning was performed. Endometrial curetting was sent for pathological examination She received 2 g of Ancef as a prophylactic measure She tolerated the procedures well and was transferred to the recovery room in stable preanesthesia condition Specimens were sent for pathological examination. Her blood loss was very minimal End of dictation thank you ZAYDA MARRUFO MD Feb 02, 2017 10:00
[2017-02-02] MEDS ORDERED: DIPHENHYDRAMINE 50 MG INJ IV PRN (10:30)
[2017-02-02] MEDS ORDERED: OXYCODONE/ACETAMINOPHEN (5/325) TAB PO PRN (10:30)
[2017-02-02] MEDS ORDERED: HYDROmorphONE (0.2 MG/ML) 10ML SYG IV PRN ×2 (10:30)
[2017-02-02] MEDS ORDERED: FENTAnyl 50 MCG/ML VIAL IV PRN ×3 (10:30)
[2017-02-02] MEDS ORDERED: MEPERIDINE 25 MG INJ IV PRN (10:30)
[2017-02-02] MEDS ORDERED: hydrALAzine 20 MG INJ IV PRN (10:30)
[2017-02-02] MEDS ORDERED: EPHEDrine SULFATE 50 MG/5 ML SYG IV PRN (10:30)
[2017-02-02] MEDS ORDERED: LABETALOL HCL 20MG INJ IV PRN (10:30)
[2017-02-02] MEDS ORDERED: KETOROLAC 30 MG INJ IV PRN (10:30)
[2017-02-02] MEDS ORDERED: ONDANSETRON 4 MG INJ IV PRN (10:30)
--- NOTE | 2017-02-02 14:00 | PN ---
Date/Time of Note Date/Time of Note DATE: 02/02/17 TIME: 13:57 Assessment/Plan VTE Prophylaxis VTE Prophylaxis Intervention: contraindicated Lines/Catheters IV Catheter Type (from Rust): Peripheral IV Assessment/Plan Chief Complaint/Hosp Course ASSESSMENT AND PLAN: A 66-year-old female coming in with congestive heart failure and atrial fibrillation with rapid ventricular rate, also with vaginal bleeding. 1. Shortness of breath - secondary to combination of congestive heart failure and possibly atrial fibrillation. Troponins are negative 3, still waiting for official echocardiogram report. Per discussion with cardiology team today, will also recommend getting a d-dimer to rule out PE. Getting IV Lasix as well has less shortness of breath symptoms overall. -Follow-up TSH and lipid panel. -We will try to wean off IV Cardizem today, continue p.o. Cardizem as well, monitor heart rate will continue that, titrate to keep the heart rate less than 100. -Continue Lasix for CHF, follow-up echocardiogram report, keep head of bed greater than 30 degrees, morphine, oxygen, nitroglycerin p.r.n., monitor ins and outs -We will follow up PT consult as well. 2. Anxiety. Ativan p.r.n. 3. Vaginal bleeding -appreciate PHOTO INTERN consult recommendations, based on what the pelvic ultrasound showed. Status post D&C procedure earlier today, endometrial biopsy was taken -Follow-up biopsy results, monitor for any vaginal bleeding, follow-up OB/ CORROSION ENGINEER recommendations -Hold all anticoagulants as well. Problems: Subjective 24 Hr Interval Summary Free Text/Dictation Patient still on Cardizem drip. Heart rate is rate controlled. Patient had D and C procedure earlier this morning by PHOTO INTERN team. Still having some mild vaginal spotting. Exam/Review of Systems Vital Signs Vitals Vital Signs Date Time Temp Pulse Resp B/P Pulse Ox O2 Delivery O2 Flow Rate FiO2 02/02/17 12:11 97.7 95 18 141/70 94 02/02/17 10:47 Nasal Cannula 02/02/17 09:59 3.0 Intake and Output 02/01/17 02/01/17 02/02/17 15:00 23:00 07:00 Intake Total 850 ml 300 ml Output Total 350 ml Balance 850 ml -50 ml Exam GENERAL: Patient is a female lying in bed, obese, in no acute distress. HEENT: Pupils equal, round, react to light. Extraocular muscles intact. NECK: Supple. No thyromegaly. LUNGS: Slight crackles heard in the bilateral bases. No wheezes. CARDIOVASCULAR: S1, S2 heard, irregular. ABDOMEN: Soft, nontender, nondistended. Normal bowel sounds. No rebound or guarding. MUSCULOSKELETAL: One plus pitting edema bilateral lower extremities to mid calf. NEUROLOGIC: No focal deficits. Results Result Diagram: 02/02/17 0720 02/02/17 0720 Results 24 hrs Laboratory Tests Test 02/01/17 16:11 02/02/17 07:20 D-Dimer 687.01 H D-Dimer Comment White Blood Count 8.1 Red Blood Count 5.06 Hemoglobin 13.2 Hematocrit 42.3 Mean Corpuscular Volume 83.6 Mean Corpuscular Hemoglobin 26.1 L Mean Corpuscular Hemoglobin Concent 31.2 L Red Cell Distribution Width 14.4 Platelet Count 279 Mean Platelet Volume 10.9 H Neutrophils % 70.3 Lymphocytes % 21.9 Monocytes % 5.7 Eosinophils % 1.5 Basophils % 0.2 Nucleated Red Blood Cells % 0.0 Neutrophils # (Manual) 5.7 Lymphocytes # 1.8 Monocytes # 0.5 Eosinophils # 0.1 Basophils # 0.0 Nucleated Red Blood Cells # 0.0 Sodium Level 140 Potassium Level 4.0 Chloride Level 102 Carbon Dioxide Level 27 Anion Gap 15 Blood Urea Nitrogen 23 H Creatinine 0.65 Glucose Level 120 Calcium Level 9.1 Medications Medications Current Medications Ondansetron HCl (Zofran Inj) 4 mg Q6H PRN IV NAUSEA AND/OR VOMITING; Start 01/31 at 18:30 Acetaminophen (Tylenol Tab) 650 mg Q6H PRN PO PAIN LEVEL 1-3 OR FEVER; Start at 18:30 Acetaminophen/ Hydrocodone Bitart ([place] (5/325)) 1 tab Q6H PRN PO MODERATE PAIN LEVEL 4-6; Start 01/31/17 at 18:30 Morphine Sulfate (morphine) 2 mg Q4H PRN IV SEVERE PAIN LEVEL 7-10; Start at 18:30 Docusate Sodium (Colace) 100 mg Q12H PRN PO CONSTIPATION; Start 01/31/17 at 18: 30 Magnesium Hydroxide (Milk Of Mag) 30 ml DAILY PRN PO CONSTIPATION; Start at 18:30 Sodium Biphosphate/ Sodium Phosphate (Fleet Enema) 133 ml DAILY PRN [place] CONSTIPATION; Start 01/31/17 at 18:30 Pantoprazole (Protonix Tab) 40 mg DAILY@06 PO Last administered on 02/02/17 06: 06; Admin Dose 40 MG; Start 02/01/17 at 06:00 Lorazepam (Ativan) 0.5 mg Q6H PRN IV ANXIETY; Start 01/31/17 at 18:30 Hydralazine HCl (Apresoline) 10 mg Q6H PRN IV ELEVATED BLOOD PRESSURE; Start at 18:30 Nitroglycerin (Nitroglycerin (Sl Tab) 0.4 Mg) 1 tab Q5M PRN SL ANGINA; Start at 18:30 Furosemide 40 mg 40 mg DAILY IV Last administered on 02/01/17 11:16; Admin Dose 40 MG; Start 02/01/17 at 09:00 Diltiazem HCl (Cardizem-D5W 125 Mg/125 ml Drip) 125 ml @ 5 mls/hr TITRATE IV Last administered on 02/02/17 02:02; Admin Dose 10 MLS/HR; Start 01/31/17 at 18: 30 Diltiazem HCl (Cardizem) 60 mg Q8 PO Last administered on 02/02/17 06:07; Admin Dose 60 MG; Start 02/01/17 at 14:00 Lorazepam (Ativan) 1 mg Q4H PRN PO ANXIETY Last administered on 02/01/17 22:54 ; Admin Dose 1 MG; Start 02/01/17 at 23:00 AUREA CARTER Feb 02, 2017 14:00
[2017-02-03] VITALS (13 sets, daily range): BP systolic 106–139; BP diastolic 56–81; PULSE 68–93; RESP 18–19
[2017-02-03] MEDS: DILTIAZEM 60 MG TAB PO SCH ×4 (06:12→21:33)
[2017-02-03] MEDS: PANTOPRAZOLE (EC) 40 MG TAB PO SCH (06:12)
[2017-02-03 07:07] LABS: HEMATOCRIT 39.4 % (37.0-47.0); HEMOGLOBIN 12.4 g/dl (12.0-16.0); LYMPHOCYTES % 7.4 % (15.0-51.0); MEAN CORPUSCULAR HEMOGLOBIN 26.2 pg (29.0-33.0); MEAN CORPUSCULAR HGB CONC 31.5 g/dl (32.0-37.0); MEAN CORPUSCULAR VOLUME 83.3 fl (82.0-101.0); MEAN PLATELET VOLUME 11.2 fl (7.4-10.4); MONOCYTE # 0.5 10^3/ul (0.3-0.9); MONOCYTES % 3.6 % (0.0-11.0); NEUTROPHILS % 88.5 % (39.0-77.0); PLATELET COUNT 253 10^3/UL (140-415); RED BLOOD COUNT 4.73 10^6/ul (4.20-5.40); RED CELL DISTRIBUTION WIDTH 14.1 % (11.5-14.5); WHITE BLOOD COUNT 13.2 10^3/ul (4.8-10.8)
[2017-02-03 07:37] LABS: CALCIUM 9.2 mg/dl (8.4-10.2); CREATININE 0.66 mg/dl (0.44-1.00); POTASSIUM 4.7 mmol/L (3.5-5.1)
[2017-02-03] MEDS: FUROSEMIDE 40 MG INJ IV SCH (09:52)
[2017-02-03] MEDS ORDERED: IOHEXOL 100 ML ONE (11:02)
[2017-02-03] MEDS ORDERED: SOD CHLORIDE 0.9% 100 ML ONE (11:02)
[2017-02-03] MEDS ORDERED: IOHEXOL 350MG/ML 50 ML BTL ONE (11:03)
--- NOTE | 2017-02-03 13:03 | RADRPT ---
PROCEDURE: CTA Chest. CLINICAL INDICATION: Chest pain TECHNIQUE: The study was performed utilizing a multidetector CT scanner. Direct spiral 1 mm axial sections were obtained from the thoracic inlet to the upper abdomen with the use of 115 cc of Omnipa que 350 nonionic intravenous contrast material and reformatted at 3 mm. Coronal and sagittal reforma tions were obtained. 3-D reconstructions were also obtained. The images were reviewed on a PACS wor kstation. One or more of the following dose reduction techniques were used: - Automated exposure control. - Adjustment of the mA and/or kV according to patient size. Use of iterative reconstruction technique. DLP 697.2 mGycm CTDIvol 56.3 and 19.9 mGy COMPARISON: No prior studies are available for comparison. FINDINGS: The subsegmental pulmonary arteries are slightly limited by motion and suboptimal contrast opacifica tion of the pulmonary arteries. No central filling defects are present. Trace visible aortic and c oronary artery atherosclerotic plaque and calcification are present with no evidence of dissection. There is no cardiomegaly. There is no lung consolidation, pleural effusion, or pneumothorax. There is a linear focus of atele ctasis within the lingula. There is mild mosaic attenuation of the lungs bilaterally. There is no suspicious nodule or mass. The airways are patent. There are no enlarged mediastinal or axillary ly mph nodes. There is mild fatty infiltration the liver which appears mildly enlarged. Degenerative changes are seen in the lumbar spine with no evidence of acute osseous abnormality. IMPRESSION: No CT evidence for pulmonary central embolus. There is limited visualization of the subsegmental pul monary arteries. There is no aortic dissection. Atherosclerotic disease. Mosaic attenuation of the lungs could represent mild air trapping. There is a focus of atelectasis/ scarring within the lingula. Hepatomegaly and fatty liver. RPTAT: AVH .Hunter Sierra MD, Date Time Electronically viewed and signed by .Hunter Sierra MD, MD on 02/03/2017 13:03 .Wolf/
[2017-02-03] MEDS: DOCUSATE SODIUM 100 MG CAP PO PRN (15:01)
--- NOTE | 2017-02-03 20:27 | PN ---
Date/Time of Note Date/Time of Note DATE: 02/03/17 TIME: 20:24 Assessment/Plan VTE Prophylaxis VTE Prophylaxis Intervention: SCD's Lines/Catheters IV Catheter Type (from Nrs): Peripheral IV Urinary Cath still in place: No Assessment/Plan Assessment/Plan 66 yo F admitted for SOB, found to be in AFib with RVR, LE swelling and with c/ o vaginal bleeding #AFib with RVR: HR improved sp ccb -TTE report pending -defer ATC while still having vaginal bleeding #LE swelling, recent DVT diagnosis -CT PE today without evidence of PE -repeat LE dopplers -if found to have DVT and vaginal bleeding persists, may need to consider IVC filter #vaginal bleeding: sp D&C, 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 was not advised to start ATC, instead told to apply warm compresses. Also still having vaginal bleeding Exam/Review of Systems Vital Signs Vitals Vital Signs Date Time Temp Pulse Resp B/P Pulse Ox O2 Delivery O2 Flow Rate FiO2 02/03/17 19:52 98.0 88 19 132/72 96 02/02/17 10:47 Nasal Cannula 02/02/17 09:59 3.0 Intake and Output 02/02/17 02/02/17 02/03/17 15:00 23:00 07:00 Intake Total 300 ml 650 ml 600 ml Output Total 15 ml Balance 285 ml 650 ml 600 ml Exam nad laying flat no mrg lungs clear abd soft 2+ bl LE edema, +darl erythematous patches at bl ankles Results Result Diagram: 02/03/17 0641 02/03/17 0641 Results 24 hrs Laboratory Tests Test 02/03/17 06:41 White Blood Count 13.2 #H Red Blood Count 4.73 Hemoglobin 12.4 Hematocrit 39.4 Mean Corpuscular Volume 83.3 Mean Corpuscular Hemoglobin 26.2 L Mean Corpuscular Hemoglobin Concent 31.5 L Red Cell Distribution Width 14.1 Platelet Count 253 Mean Platelet Volume 11.2 H Neutrophils % 88.5 H Lymphocytes % 7.4 L Monocytes % 3.6 Eosinophils % 0.0 Basophils % 0.0 Nucleated Red Blood Cells % 0.0 Neutrophils # (Manual) 11.7 H Lymphocytes # 1.0 Monocytes # 0.5 Eosinophils # 0.0 Basophils # 0.0 Nucleated Red Blood Cells # 0.0 Sodium Level 136 Potassium Level 4.7 Chloride Level 99 Carbon Dioxide Level 25 Anion Gap 17 H Blood Urea Nitrogen 21 H Creatinine 0.66 Glucose Level 211 Calcium Level 9.2 Medications Medications Current Medications Ondansetron HCl (Zofran Inj) 4 mg Q6H PRN IV NAUSEA AND/OR VOMITING; Start 01/31 at 18:30 Acetaminophen (Tylenol Tab) 650 mg Q6H PRN PO PAIN LEVEL 1-3 OR FEVER; Start at 18:30 Acetaminophen/ Hydrocodone Bitart ([place] (5/325)) 1 tab Q6H PRN PO MODERATE PAIN LEVEL 4-6; Start 01/31/17 at 18:30 Morphine Sulfate (morphine) 2 mg Q4H PRN IV SEVERE PAIN LEVEL 7-10; Start at 18:30 Docusate Sodium (Colace) 100 mg Q12H PRN PO CONSTIPATION Last administered on 15:01; Admin Dose 100 MG; Start 01/31/17 at 18:30 Magnesium Hydroxide (Milk Of Mag) 30 ml DAILY PRN PO CONSTIPATION; Start at 18:30 Sodium Biphosphate/ Sodium Phosphate (Fleet Enema) 133 ml DAILY PRN [place] CONSTIPATION; Start 01/31/17 at 18:30 Pantoprazole (Protonix Tab) 40 mg DAILY@06 PO Last administered on 02/03/17 06: 12; Admin Dose 40 MG; Start 02/01/17 at 06:00 Lorazepam (Ativan) 0.5 mg Q6H PRN IV ANXIETY; Start 01/31/17 at 18:30 Hydralazine HCl (Apresoline) 10 mg Q6H PRN IV ELEVATED BLOOD PRESSURE; Start at 18:30 Nitroglycerin (Nitroglycerin (Sl Tab) 0.4 Mg) 1 tab Q5M PRN SL ANGINA; Start at 18:30 Furosemide (Lasix) 40 mg DAILY IV Last administered on 02/03/17 09:52; Admin Dose 40 MG; Start 02/01/17 at 09:00 Diltiazem HCl (Cardizem) 60 mg Q8 PO Last administered on 02/03/17 14:44; Admin Dose 60 MG; Start 02/01/17 at 14:00 Lorazepam (Ativan) 1 mg Q4H PRN PO ANXIETY Last administered on 02/01/17 22:54 ; Admin Dose 1 MG; Start 02/01/17 at 23:00 RISHI KIM MD Feb 03, 2017 20:27
--- NOTE | 2017-02-03 22:40 | RADRPT ---
PROCEDURE: Ultrasound of the bilateral lower extremity venous system. CLINICAL INDICATION: Bilateral leg pain and swelling, deep venous thrombosis TECHNIQUE: Garcia scale with and without compression, color doppler, spectral doppler of the venous system of the bilateral lower extremities was performed. Venous augmentation maneuvers were utilized . COMPARISON: No prior studies are available for comparison. FINDINGS: RIGHT: Common femoral vein: Patent. Femoral vein: Patent. Popliteal vein: Patent. Calf veins: Patent. No soft tissue abnormalities are identified. LEFT: Common femoral vein: Patent. Femoral vein: Patent. Popliteal vein: Patent. Calf veins: Patent. 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 The saphenofemoral junction is patent. IMPRESSION: No evidence of a deep vein thrombosis within the bilateral lower extremities. Superficial chronic-appearing thrombosis of the left greater saphenous vein. RPTAT: AADD .Bam Rodriguez MD, MD Date Time Electronically viewed and signed by .Bam Rodriguez MD, on 02/03/2017 22:40 .B/
[2017-02-04] VITALS (13 sets, daily range): BP systolic 121–144; BP diastolic 65–74; PULSE 40–82; RESP 18–19
[2017-02-04] MEDS: PANTOPRAZOLE (EC) 40 MG TAB PO SCH (05:41)
[2017-02-04] MEDS: DILTIAZEM 60 MG TAB PO SCH ×2 (05:43→14:00)
[2017-02-04 07:40] LABS: BASOPHILS % 0.1 % (0.0-2.0); EOSINOPHILS % 0.1 % (0.0-7.0); HEMATOCRIT 38.8 % (37.0-47.0); HEMOGLOBIN 12.5 g/dl (12.0-16.0); LYMPHOCYTES # 2.2 10^3/ul (0.8-2.9); LYMPHOCYTES % 16.1 % (15.0-51.0); MEAN CORPUSCULAR HEMOGLOBIN 26.8 pg (29.0-33.0); MEAN CORPUSCULAR HGB CONC 32.2 g/dl (32.0-37.0); MEAN CORPUSCULAR VOLUME 83.3 fl (82.0-101.0); MEAN PLATELET VOLUME 11.2 fl (7.4-10.4); MONOCYTE # 0.8 10^3/ul (0.3-0.9); MONOCYTES % 5.8 % (0.0-11.0); NEUTROPHILS % 77.3 % (39.0-77.0); PLATELET COUNT 277 10^3/UL (140-415); RED BLOOD COUNT 4.66 10^6/ul (4.20-5.40); RED CELL DISTRIBUTION WIDTH 14.1 % (11.5-14.5); WHITE BLOOD COUNT 13.6 10^3/ul (4.8-10.8)
[2017-02-04 08:02] LABS: CALCIUM 8.7 mg/dl (8.4-10.2); CREATININE 0.56 mg/dl (0.44-1.00); POTASSIUM 4.3 mmol/L (3.5-5.1)
[2017-02-04] MEDS: FUROSEMIDE 40 MG INJ IV SCH (08:39)
--- NOTE | 2017-02-04 14:22 | RADRPT ---
Echocardiogram Report Patient Name: ROSIE VALLE Gender: Female Date: 1950 Study Date: 01-Feb-2017 [employer] Attendant: DYLLAN Location: I Height(Cm): 152 Weight(Kg): 82 BSA: 1.86 Ref. Physician: AUREA CARTER Quality: Adequate Procedures: Transthoracic echocardiogram with 2D, M-Mode, and Doppler examination, poor subcostal images. Indications: Atrial Fibrillation. 2D/M Mode Doppler Measurement Value Normal Ranges Measurement Value Normal Ranges AoR Diam MM 2.8 cm AV Peak Bro 1.2 m/sec ACS MM 1.8 cm AV Peak PG 5.8 mmHg LVIDd 2D 4.4 3.5 - 5.6 cm LVOT Peak Bro 0.8 m/sec LVIDs 2D 3.3 2.1 - 4.1 cm LVOT Peak PG 2.3 mmHg LVPWd 2D 1.0 0.6 - 1.1 cm MV E Peak Bro 0.9 m/sec IVSd 2D 1.2 0.6 - 1.1 cm Lateral E` 0.2 m/sec EDV 2D 87.4 cm3 TR Peak Bro 2.1 m/sec ESV 2D 36.5 cm3 TR Peak PG 17.8 mmHg LA Dimen 2D 4.0 2.3 - 4.0 cm PV Peak Bro 0.9 m/sec PV Peak PG 3.0 mmHg RVSP 20.8 mmHg Findings Left Ventricle: Lower limits of normal systolic function. Normal left ventricular cavity size. Mild hypertrophy of the basal septum. Ejection fraction is visually estimated at 55 %. Tissue Doppler/Mitral Doppler indices are indeterminate in this study due to the presence of atrial fibrillation throughout exam. E/E`=5. Right Ventricle: Normal right ventricular size. Left Atrium: There is moderate enlargement of left atrium appreciated best by LA index of 36 ml/m2. Right Atrium: There is mild enlargement of right atrium. Atrial Septum: Not well visualized. Mitral Valve: Normal appearance of the mitral valve. Trace mitral regurgitation. Aortic Valve: No significant aortic stenosis or insufficiency. Normal trileaflet aortic valve structure. Tricuspid Valve: Normal appearance of the tricuspid valve. Estimated peak PA systolic pressure 21 mmHg. There is mild tricuspid regurgitation. Pulmonic Valve: Normal pulmonic valve appearance. No evidence of pulmonic regurgitation. Pericardium: Normal pericardium with no significant pericardial effusion. Aorta: Normal aortic root. IVC: Normal size and normal respiratory collapse consistent with normal right atrial pressure. Pulmonary Artery: Normal pulmonary artery size. Conclusions 1.Lower limits of normal systolic function. Normal left ventricular cavity size. Mild hypertrophy of the basal septum. Ejection fraction is visually estimated at 55 %. Tissue Doppler/Mitral Doppler indices are indeterminate in this study due to the presence of atrial fibrillation throughout exam. E/E`=5. 2.There is moderate enlargement of left atrium appreciated best by LA index of 36 ml/m2. 3.There is mild enlargement of right atrium. 4.Normal appearance of the mitral valve. Trace mitral regurgitation. 5.Normal appearance of the tricuspid valve. Estimated peak PA systolic pressure 21 mmHg. There is mild tricuspid regurgitation. Electronically Signed By: Fidel Gustafson 04-Feb-2017 14:21:27 -0700 Patient Name: ROSIE VALLE Study Date: 01-Feb-2017 [id number]
--- NOTE | 2017-02-04 15:00 | CONS ---
DATE OF ADMISSION: 01/31/2017 DATE OF CONSULTATION: 02/04/2017 HISTORY OF PRESENT ILLNESS: Dear doctors, Ms. Pascual, is a 66- year-old female, who presented to [facility] secondary to history of shortness of breath and chest pain. Being worked up for heart failure. At the same time patient has had history of vaginal bleeding in which she underwent a gynecology evaluation and biopsy. During her evaluation workup the patient did have venous ultrasound which identified patient having a chronic left greater saphenous vein thrombosis. Vascular surgery consultation was obtained for further evaluation. PAST MEDICAL HISTORY: Entails morbidly obese, hypertension, anxiety, possible atrial fibrillation. No vaginal bleeding. PAST SURGICAL HISTORY: Varicose vein surgery 14 days ago. MEDICATION: None. ALLERGIES: NO KNOWN DRUG ALLERGIES. FAMILY HISTORY: Noncontributory. SOCIAL HISTORY: Denies tobacco, alcohol or illicit drug use. PHYSICAL EXAMINATION: GENERAL APPEARANCE: Alert, oriented x3. No apparent distress. HEENT: Normocephalic, atraumatic. PERRLA. EOMI. Mucosa moist. NECK: Supple. No carotid bruit. LUNGS: Coarse breath sounds bilaterally with crackles at the bases. HEART: S1, S2 present. Regular rate, irregularly-irregular. ABDOMEN: Soft, nontender, nondistended. Bowel sounds positive. Large truncal obesity. EXTREMITIES: Lower extremities, palpable femoral pulse. A faint pedal pulse. Motor and sensory intact. Capillary refill 3 seconds. Presence of lipodermatosclerosis. Left lower extremity, palpable femoral pulse. A faint pedal pulse. Motor sensory intact. Capillary refill 2-3 seconds. Presence of lipodermatosclerosis, spider veins and telangiectasias. IMPRESSION AND PLAN: 1. Bilateral lower extremity venous insufficiency with varicose veins: The patient has history of what seems to be a possible greater saphenous vein reflux in which she underwent ablation at outside facility. Findings are consistent with possible ablation, where the patient has a thrombosis of the greater saphenous vein from the mid calf towards the proximal thigh. Saphenofemoral junction is clear of any thrombosis. From a vascular surgery standpoint, no further management or treatment will be needed. Patient should follow with outside physician who has ablated the patient has varicose veins. 2. Optimize vascular status (BP meds, diet, nutrition, exercise, sugar control, antiplatelets and weight loss). 3. Discussed findings, plan, and management. The patient, she understands. 4. The patient may have a pelvic reflux, in which I would recommended either to follow up with our office or with outside physician for further evaluation on the left lower extremity. Thank you for allowing us to partake in the care of your patient. Please call with any questions. Dictated By: Froy Laird MD /[email or web address] /Document#: [id number]
--- NOTE | 2017-02-04 16:22 | PN ---
Date/Time of Note Date/Time of Note DATE: 02/04/17 TIME: 16:20 Assessment/Plan VTE Prophylaxis VTE Prophylaxis Intervention: SCD's Lines/Catheters IV Catheter Type (from Nrsg): Peripheral IV Urinary Cath still in place: No Assessment/Plan Assessment/Plan 66 yo F admitted for SOB, found to be in AFib with RVR, LE swelling and with c/ o vaginal bleeding #AFib with RVR: HR improved sp ccb -change q8h CCB to daily SR CCB -start ASA for CVA prevention while awaiting uterine biopsy results #superficial LE blood clot -CT PE today without evidence of PE -sp vascular eval, no intervention indicated at this time as pt previously had ablation #vaginal bleeding: sp D&C, grinder carbon plant on cs PLAN: talk to grinder carbon plant in AM, f/u HR. possibly dc Subjective 24 Hr Interval Summary Free Text/Dictation Test results dw pt, vascular to see today. Still in AFib Exam/Review of Systems Vital Signs Vitals Vital Signs Date Time Temp Pulse Resp B/P Pulse Ox O2 Delivery O2 Flow Rate FiO2 02/04/17 15:44 98.0 86 18 133/65 97 02/02/17 10:47 Nasal Cannula 02/02/17 09:59 3.0 Intake and Output 02/03/17 02/03/17 02/04/17 15:00 23:00 07:00 Intake Total 800 ml 750 ml Balance 800 ml 750 ml Exam nad irreg irreg lungs clear abd soft no rashes LE doppler reviewed TTE reviewed Results Result Diagram: 02/04/17 0654 02/04/17 0654 Results 24 hrs Laboratory Tests Test 02/04/17 06:54 White Blood Count 13.6 H Red Blood Count 4.66 Hemoglobin 12.5 Hematocrit 38.8 Mean Corpuscular Volume 83.3 Mean Corpuscular Hemoglobin 26.8 L Mean Corpuscular Hemoglobin Concent 32.2 Red Cell Distribution Width 14.1 Platelet Count 277 Mean Platelet Volume 11.2 H Neutrophils % 77.3 H Lymphocytes % 16.1 Monocytes % 5.8 Eosinophils % 0.1 Basophils % 0.1 Nucleated Red Blood Cells % 0.0 Neutrophils # (Manual) 10.5 H Lymphocytes # 2.2 Monocytes # 0.8 Eosinophils # 0.0 Basophils # 0.0 Nucleated Red Blood Cells # 0.0 Sodium Level 134 L Potassium Level 4.3 Chloride Level 99 Carbon Dioxide Level 27 Anion Gap 12 Blood Urea Nitrogen 21 H Creatinine 0.56 Glucose Level 118 # Calcium Level 8.7 Medications Medications Current Medications Ondansetron HCl (Zofran Inj) 4 mg Q6H PRN IV NAUSEA AND/OR VOMITING; Start 01/31 at 18:30 Acetaminophen (Tylenol Tab) 650 mg Q6H PRN PO PAIN LEVEL 1-3 OR FEVER; Start at 18:30 Acetaminophen/ Hydrocodone Bitart ([place] (5/325)) 1 tab Q6H PRN PO MODERATE PAIN LEVEL 4-6; Start 01/31/17 at 18:30 Morphine Sulfate (morphine) 2 mg Q4H PRN IV SEVERE PAIN LEVEL 7-10; Start at 18:30 Docusate Sodium (Colace) 100 mg Q12H PRN PO CONSTIPATION Last administered on 15:01; Admin Dose 100 MG; Start 01/31/17 at 18:30 Magnesium Hydroxide (Milk Of Mag) 30 ml DAILY PRN PO CONSTIPATION Last administered on 02/04/17 08:39; Admin Dose 30 ML; Start 01/31/17 at 18:30 Sodium Biphosphate/ Sodium Phosphate (Fleet Enema) 133 ml DAILY PRN [place] CONSTIPATION; Start 01/31/17 at 18:30 Pantoprazole (Protonix Tab) 40 mg DAILY@06 PO Last administered on 02/04/17 05: 41; Admin Dose 40 MG; Start 02/01/17 at 06:00 Lorazepam (Ativan) 0.5 mg Q6H PRN IV ANXIETY; Start 01/31/17 at 18:30 Hydralazine HCl (Apresoline) 10 mg Q6H PRN IV ELEVATED BLOOD PRESSURE; Start at 18:30 Nitroglycerin (Nitroglycerin (Sl Tab) 0.4 Mg) 1 tab Q5M PRN SL ANGINA; Start at 18:30 Furosemide (Lasix) 40 mg DAILY IV Last administered on 02/04/17 08:39; Admin Dose 40 MG; Start 02/01/17 at 09:00 Diltiazem HCl (Cardizem) 60 mg Q8 PO Last administered on 02/04/17 05:43; Admin Dose 60 MG; Start 02/01/17 at 14:00 Lorazepam (Ativan) 1 mg Q4H PRN PO ANXIETY Last administered on 02/01/17t 22:54 ; Admin Dose 1 MG; Start 02/01/17 at 23:00 RISHI KIM MD Feb 04, 2017 16:22
[2017-02-05] VITALS (10 sets, daily range): BP systolic 118–164; BP diastolic 63–80; PULSE 60–97; RESP 18–20
[2017-02-05 08:34] LABS: BASOPHILS % 0.2 % (0.0-2.0); EOSINOPHILS # 0.1 10^3/ul (0.0-0.5); EOSINOPHILS % 0.5 % (0.0-7.0); HEMATOCRIT 44.1 % (37.0-47.0); HEMOGLOBIN 13.4 g/dl (12.0-16.0); LYMPHOCYTES % 32.6 % (15.0-51.0); MEAN CORPUSCULAR HEMOGLOBIN 25.9 pg (29.0-33.0); MEAN CORPUSCULAR HGB CONC 30.4 g/dl (32.0-37.0); MEAN CORPUSCULAR VOLUME 85.3 fl (82.0-101.0); MEAN PLATELET VOLUME 11.3 fl (7.4-10.4); MONOCYTE # 0.8 10^3/ul (0.3-0.9); MONOCYTES % 8.1 % (0.0-11.0); NEUTROPHILS % 58.3 % (39.0-77.0); PLATELET COUNT 232 10^3/UL (140-415); RED BLOOD COUNT 5.17 10^6/ul (4.20-5.40); RED CELL DISTRIBUTION WIDTH 14.4 % (11.5-14.5); WHITE BLOOD COUNT 9.3 10^3/ul (4.8-10.8)
[2017-02-05] MEDS: DILTIAZEM (SR) 90 MG CAP PO SCH (08:57)
[2017-02-05] MEDS ORDERED: ASPIRIN 325 MG TAB PO SCH (09:00)
[2017-02-05 09:04] LABS: CALCIUM 8.5 mg/dl (8.4-10.2); CREATININE 0.77 mg/dl (0.44-1.00); POTASSIUM 4.4 mmol/L (3.5-5.1)
--- NOTE | 2017-02-05 17:58 | PN ---
Date/Time of Note Date/Time of Note DATE: 02/05/17 TIME: 17:58 Assessment/Plan VTE Prophylaxis VTE Prophylaxis Intervention: SCD's Lines/Catheters IV Catheter Type (from Nrs): Saline Lock Urinary Cath still in place: No Assessment/Plan Assessment/Plan 66 yo F admitted for SOB, found to be in AFib with RVR, LE swelling and with c/ o vaginal bleeding #AFib with RVR: HR improved sp ccb -changed q8h CCB to daily SR CCB -dw ATC with track service worker. given pt sp D&C, further vaginal bleeding unlikely. Will start full ATC #superficial LE blood clot -CT PE today without evidence of PE -sp vascular eval, no intervention indicated at this time as pt previously had ablation #vaginal bleeding: sp D&C, track service worker on cs. path benign PLAN: will dc in AM Subjective 24 Hr Interval Summary Free Text/Dictation Pt not in room at time of my attempted eval this AM Exam/Review of Systems Vital Signs Vitals Vital Signs Date Time Temp Pulse Resp B/P Pulse Ox O2 Delivery O2 Flow Rate FiO2 02/05/17 16:08 78 02/05/17 16:02 98.6 18 118/63 95 02/02/17 10:47 Nasal Cannula 02/02/17 09:59 3.0 Intake and Output 02/04/17 02/04/17 02/05/17 15:00 23:00 07:00 Intake Total 400 ml 650 ml Balance 400 ml 650 ml Exam Pt not in room at time of my attempted eval Path report Endometrial curettings: -- Simple and focally complex endometrial hyperplasia. -- No malignancy or atypia is identified. Results Result Diagram: 02/05/17 0733 02/05/17 0733 Results 24 hrs Laboratory Tests Test 02/05/17 07:33 White Blood Count 9.3 # Red Blood Count 5.17 Hemoglobin 13.4 Hematocrit 44.1 Mean Corpuscular Volume 85.3 Mean Corpuscular Hemoglobin 25.9 L Mean Corpuscular Hemoglobin Concent 30.4 L Red Cell Distribution Width 14.4 Platelet Count 232 Mean Platelet Volume 11.3 H Neutrophils % 58.3 Lymphocytes % 32.6 Monocytes % 8.1 Eosinophils % 0.5 Basophils % 0.2 Nucleated Red Blood Cells % 0.0 Neutrophils # (Manual) 5.4 Lymphocytes # 3.0 H Monocytes # 0.8 Eosinophils # 0.1 Basophils # 0.0 Nucleated Red Blood Cells # 0.0 Sodium Level 135 Potassium Level 4.4 Chloride Level 98 Carbon Dioxide Level 31 Anion Gap 10 Blood Urea Nitrogen 19 Creatinine 0.77 Glucose Level 96 Calcium Level 8.5 Medications Medications Current Medications Ondansetron HCl (Zofran Inj) 4 mg Q6H PRN IV NAUSEA AND/OR VOMITING; Start 01/31 at 18:30 Acetaminophen (Tylenol Tab) 650 mg Q6H PRN PO PAIN LEVEL 1-3 OR FEVER; Start at 18:30 Acetaminophen/ Hydrocodone Bitart ([place] (5/325)) 1 tab Q6H PRN PO MODERATE PAIN LEVEL 4-6; Start 01/31/17 at 18:30 Docusate Sodium (Colace) 100 mg Q12H PRN PO CONSTIPATION Last administered on 15:01; Admin Dose 100 MG; Start 01/31/17 at 18:30 Magnesium Hydroxide (Milk Of Mag) 30 ml DAILY PRN PO CONSTIPATION Last administered on 02/04/17 08:39; Admin Dose 30 ML; Start 01/31/17 at 18:30 Sodium Biphosphate/ Sodium Phosphate (Fleet Enema) 133 ml DAILY PRN [place] CONSTIPATION; Start 01/31/17 at 18:30 Nitroglycerin (Nitroglycerin (Sl Tab) 0.4 Mg) 1 tab Q5M PRN SL ANGINA; Start at 18:30 Lorazepam (Ativan) 1 mg Q4H PRN PO ANXIETY Last administered on 02/01/17 22:54 ; Admin Dose 1 MG; Start 02/01/17 at 23:00 Diltiazem HCl (Cardizem Sr) 180 mg DAILY PO Last administered on 02/05/17 08:57 ; Admin Dose 180 MG; Start 02/05/17 at 09:00 Aspirin (Aspirin) 325 mg DAILY PO Last administered on 02/05/17 08:57; Admin Dose 325 MG; Start 02/05/17 at 09:00 RISHI KIM MD Feb 05, 2017 17:58
[2017-02-05] MEDS ORDERED: RIVAROXABAN 20 MG TABLET PO SCH (18:05)
[2017-02-05] MEDS: RIVAROXABAN 20 MG TABLET PO SCH (20:34)
[2017-02-05] MEDS: DOCUSATE SODIUM 100 MG CAP PO PRN (20:38)
[2017-02-06] VITALS (10 sets, daily range): BP systolic 116–142; BP diastolic 63–82; PULSE 57–89; RESP 16–18
[2017-02-06 08:32] LABS: BASOPHILS % 0.1 % (0.0-2.0); EOSINOPHILS # 0.1 10^3/ul (0.0-0.5); EOSINOPHILS % 1.1 % (0.0-7.0); HEMATOCRIT 47.5 % (37.0-47.0); HEMOGLOBIN 14.9 g/dl (12.0-16.0); LYMPHOCYTES # 2.8 10^3/ul (0.8-2.9); LYMPHOCYTES % 26.6 % (15.0-51.0); MEAN CORPUSCULAR HGB CONC 31.4 g/dl (32.0-37.0); MEAN CORPUSCULAR VOLUME 82.9 fl (82.0-101.0); MONOCYTE # 0.6 10^3/ul (0.3-0.9); MONOCYTES % 5.7 % (0.0-11.0); NEUTROPHILS % 66.2 % (39.0-77.0); PLATELET COUNT 294 10^3/UL (140-415); RED BLOOD COUNT 5.73 10^6/ul (4.20-5.40); RED CELL DISTRIBUTION WIDTH 14.2 % (11.5-14.5); WHITE BLOOD COUNT 10.5 10^3/ul (4.8-10.8)
[2017-02-06] MEDS: DILTIAZEM (SR) 90 MG CAP PO SCH (08:36)
[2017-02-06 09:01] LABS: CALCIUM 9.4 mg/dl (8.4-10.2); CREATININE 0.62 mg/dl (0.44-1.00); POTASSIUM 4.5 mmol/L (3.5-5.1)
[2017-02-06] MEDS ORDERED: METOPROLOL 5 MG INJ IV PRN (10:00)
[2017-02-06] MEDS: FUROSEMIDE 20 MG INJ IV SCH (10:48)
--- NOTE | 2017-02-06 11:02 | CONS ---
DATE OF ADMISSION: 01/31/2017 DATE OF CONSULTATION: 02/06/2017 REASON FOR CONSULTATION: Atrial fibrillation with rapid ventricular response, chest pain. REFERRING PHYSICIAN: Dr. Gilbert from the hospitalist service. HISTORY OF PRESENT ILLNESS: Ms. Pascual is a 66-year-old female with a history of hypertension, anxiety, venous insufficiency, status post prior venous ablation, who initially presented with complaints of chest pain, shortness of breath and associated vaginal bleeding. Initially upon arrival, temperature 98.6, blood pressure 127/68, pulse of 132, respiratory rate 21, satting 97 percent. LABORATORY: Revealed a white count 8.1, hemoglobin 13.2, platelet count of 279. Sodium 140, potassium 4, creatinine 0.6, BUN 23. The patient underwent a chest x-ray that revealed cardiomegaly with mild interstitial congestive heart failure. A pelvic ultrasound that revealed markedly thickened endometrium for a postmenopausal woman, nodular echogenicity in the superior aspect of the endometrium. A venous ultrasound that revealed no evidence of DVT of the bilateral lower extremities. Superficial chronic-appearing thrombus of the left greater saphenous vein. A CTA that revealed no CT evidence of pulmonary central embolus, limited visualization of the subsegmental pulmonary arteries, atherosclerotic disease, hepatomegaly and fatty liver. The patient's electrocardiogram revealed atrial fibrillation, at a rate of 125, normal axis, normal intervals, with nonspecific ST-T wave abnormalities diffusely. The patient subsequently admitted to the floor where she was started on diltiazem and was consulted by the AIR CONDITIONING INSTALLER SUPERVISOR services. Underwent a D and C to rule out endometrial cancer and for vaginal bleeding. The patient at this time, remains in atrial fibrillation with some ongoing vaginal bleeding and mild atrial ablation with rapid ventricular response on currently diltiazem SR 180 mg daily, has been resumed on Xarelto as of today. PAST MEDICAL HISTORY: As above in HPI. MEDICATION: Current in the hospital: 1. Xarelto. 2. Diltiazem. 3. Zofran p.r.n. 4. Tylenol p.r.n. 5. [place] p.r.n. 6. Colace p.r.n. 7. Milk of Magnesium p.r.n. 8. DuoNeb. ALLERGIES: NO KNOWN DRUG ALLERGIES. SOCIAL HISTORY: No tobacco, EtOH or illicit drug use. FAMILY HISTORY: No history of sudden cardiac or early CAD. REVIEW OF SYSTEMS: As above in HPI. CONSTITUTIONAL: No fevers, chills. RESPIRATORY: No current shortness of breath. CARDIOVASCULAR: Positive chest pain, palpitations. GASTROINTESTINAL: No vomiting. GENITOURINARY: Vaginal bleeding. PSYCHIATRIC: Anxiety. NEUROLOGIC: No documented CVA. ENDOCRINE: No documented diabetes mellitus. PHYSICAL EXAMINATION: VITAL SIGNS: Temperature of 98.6, blood pressure most recent 137/82, pulse in the low 100, respiratory rate 18, satting 95 percent. GENERAL APPEARANCE: The patient is alert, awake, complaining of palpitations. NECK: JVP approximately 9 cm of water. LUNGS: Fair air movement throughout. HEART: Irregular regular, tachycardic, 1/6 systolic murmur. ABDOMEN: Positive bowel sounds. Obese, soft. EXTREMITIES: 2+ edema bilaterally. 1+ pulses bilaterally posterior tibial. LABORATORY: As above in HPI with most recent from today. Sodium 138, potassium 4.5, creatinine 0.6, BUN 16. White blood cell count 10.5, hemoglobin 14.9, platelet count of 294. IMAGING STUDIES: As above in HPI. No further imaging studies are reviewed at this time. ELECTROCARDIOGRAM: As above in HPI. No further electrocardiograms are reviewed at this time. IMPRESSION: 1. Atrial fibrillation with rapid ventricular response . 2. Chest pain. Described more as palpitations, likely secondary to the patient's atrial fibrillation with rapid ventricular response. 3. Congestive heart failure by chest x-ray and by exam with preserved left ventricular ejection fraction by 2D echo. 4. Diastolic heart failure, acute on chronic. 5. Hypertension, under reasonable control. 6. Vaginal bleeding. RECOMMENDATIONS: 1. At this time, would maintain patient on telemetry monitoring to follow rhythm and rate closely. 2. Increase patient diltiazem in order to improve overall heart rate control and we will give patient digoxin IV push low partial in order to improve heart rate control acutely and use of p.r.n. IV push beta becka as necessary thereafter. 3. Would place patient on Lasix diuresis in an attempt to improve lower extremity edema. 4. Continue to follow patient's hemoglobin closely on Xarelto for ongoing bleeding. Thank you for allowing me to take part in the care of this patient. I will continue to follow closely with you. Further recommendations will be made as patient progresses through her inpatient hospital course. Dictated By: Fidel Gustafson MD /[email or web address] /Document#: [id number] ; Dr. Gilbert; Dr. Jenkins
[2017-02-06] MEDS: DIGOXIN 500 MCG INJ IV SCH ×2 (11:38→17:24)
--- NOTE | 2017-02-06 16:45 | PN ---
Date/Time of Note Date/Time of Note DATE: 02/06/17 TIME: 16:43 Assessment/Plan VTE Prophylaxis VTE Prophylaxis Intervention: SCD's Lines/Catheters IV Catheter Type (from Nrs): Saline Lock Urinary Cath still in place: No Assessment/Plan Assessment/Plan 66 yo F admitted for SOB, found to be in AFib with RVR, LE swelling and with c/ o vaginal bleeding, sp D&C with EMB--->path benign #AFib with RVR: appreciate cardiology assistance with rate management -changed q8h CCB to daily SR CCB -dw ATC with innersole fitter. given pt sp D&C, further vaginal bleeding unlikely. Will start full ATC #superficial LE blood clot -CT PE today without evidence of PE -sp vascular eval, no intervention indicated at this time as pt previously had ablation #vaginal bleeding: sp D&C, innersole fitter on cs. path benign PLAN: likely dc in AM if HR better controlled Exam/Review of Systems Vital Signs Vitals Vital Signs Date Time Temp Pulse Resp B/P Pulse Ox O2 Delivery O2 Flow Rate FiO2 02/06/17 16:23 76 02/06/17 15:24 98.0 18 125/67 97 02/02/17 10:47 Nasal Cannula 02/02/17 09:59 3.0 Intake and Output 02/05/17 02/05/17 02/06/17 15:00 23:00 07:00 Intake Total 600 ml 700 ml Balance 600 ml 700 ml Results Result Diagram: 02/06/17 0819 02/06/17 0819 Results 24 hrs Laboratory Tests Test 02/06/17 08:19 White Blood Count 10.5 Red Blood Count 5.73 H Hemoglobin 14.9 Hematocrit 47.5 H Mean Corpuscular Volume 82.9 Mean Corpuscular Hemoglobin 26.0 L Mean Corpuscular Hemoglobin Concent 31.4 L Red Cell Distribution Width 14.2 Platelet Count 294 # Mean Platelet Volume 11.0 H Neutrophils % 66.2 Lymphocytes % 26.6 Monocytes % 5.7 Eosinophils % 1.1 Basophils % 0.1 Nucleated Red Blood Cells % 0.0 Neutrophils # (Manual) 6.9 Lymphocytes # 2.8 Monocytes # 0.6 Eosinophils # 0.1 Basophils # 0.0 Nucleated Red Blood Cells # 0.0 Sodium Level 138 Potassium Level 4.5 Chloride Level 101 Carbon Dioxide Level 28 Anion Gap 14 Blood Urea Nitrogen 16 Creatinine 0.62 Glucose Level 110 Calcium Level 9.4 Medications Medications Current Medications Ondansetron HCl (Zofran Inj) 4 mg Q6H PRN IV NAUSEA AND/OR VOMITING; Start 01/31 at 18:30 Acetaminophen (Tylenol Tab) 650 mg Q6H PRN PO PAIN LEVEL 1-3 OR FEVER; Start at 18:30 Acetaminophen/ Hydrocodone Bitart ([place] (5/325)) 1 tab Q6H PRN PO MODERATE PAIN LEVEL 4-6; Start 01/31/17 at 18:30 Docusate Sodium (Colace) 100 mg Q12H PRN PO CONSTIPATION Last administered on 20:38; Admin Dose 100 MG; Start 01/31/17 at 18:30 Magnesium Hydroxide (Milk Of Mag) 30 ml DAILY PRN PO CONSTIPATION Last administered on 02/04/17 08:39; Admin Dose 30 ML; Start 01/31/17 at 18:30 Sodium Biphosphate/ Sodium Phosphate (Fleet Enema) 133 ml DAILY PRN [place] CONSTIPATION; Start 01/31/17 at 18:30 Nitroglycerin (Nitroglycerin (Sl Tab) 0.4 Mg) 1 tab Q5M PRN SL ANGINA; Start at 18:30 Lorazepam (Ativan) 1 mg Q4H PRN PO ANXIETY Last administered on 02/01/17 22:54 ; Admin Dose 1 MG; Start 02/01/17 at 23:00 Digoxin (Digoxin) 250 mcg Q6H IV Last administered on 02/06/17 11:38; Admin Dose 250 MCG; Start 02/06/17 at 12:00; Stop 02/06/17 at 18:01 Metoprolol Tartrate (Lopressor) 5 mg Q4H PRN IV HR>110 Hold SBP<100; Start 02/06 at 10:00 Furosemide (Lasix) 20 mg DAILY IV Last administered on 02/06/17 10:48; Admin Dose 20 MG; Start 02/06/17 at 10:00 Diltiazem HCl (Cardizem Cd) 180 mg BID PO ; Start 02/06/17 at 21:00 RISHI KIM MD Feb 06, 2017 16:45
[2017-02-06] MEDS: RIVAROXABAN 20 MG TABLET PO SCH (17:31)
[2017-02-06] MEDS: DILTIAZEM (CD) 180 MG CAP PO SCH (20:21)
[2017-02-07] VITALS (10 sets, daily range): BP systolic 121–141; BP diastolic 55–98; PULSE 71–92; RESP 18–20
[2017-02-07 08:04] LABS: BASOPHILS % 0.2 % (0.0-2.0); EOSINOPHILS # 0.2 10^3/ul (0.0-0.5); EOSINOPHILS % 1.8 % (0.0-7.0); HEMATOCRIT 48.5 % (37.0-47.0); HEMOGLOBIN 15.1 g/dl (12.0-16.0); LYMPHOCYTES # 2.3 10^3/ul (0.8-2.9); LYMPHOCYTES % 23.9 % (15.0-51.0); MEAN CORPUSCULAR HEMOGLOBIN 25.9 pg (29.0-33.0); MEAN CORPUSCULAR HGB CONC 31.1 g/dl (32.0-37.0); MEAN PLATELET VOLUME 11.1 fl (7.4-10.4); MONOCYTE # 0.5 10^3/ul (0.3-0.9); MONOCYTES % 5.2 % (0.0-11.0); NEUTROPHILS % 68.6 % (39.0-77.0); PLATELET COUNT 276 10^3/UL (140-415); RED BLOOD COUNT 5.84 10^6/ul (4.20-5.40); RED CELL DISTRIBUTION WIDTH 14.3 % (11.5-14.5); WHITE BLOOD COUNT 9.7 10^3/ul (4.8-10.8)
[2017-02-07 08:49] LABS: CALCIUM 9.4 mg/dl (8.4-10.2); CREATININE 0.83 mg/dl (0.44-1.00); POTASSIUM 4.3 mmol/L (3.5-5.1)
[2017-02-07] MEDS ORDERED: DILTIAZEM (CD) 240 MG CAP PO SCH (09:00)
[2017-02-07] MEDS: DILTIAZEM (CD) 180 MG CAP PO SCH ×2 (09:29→18:51)
[2017-02-07] MEDS: FUROSEMIDE 20 MG INJ IV SCH (09:29)
--- NOTE | 2017-02-07 16:06 | CONS ---
Date/Time of Note Date/Time of Note DATE: 02/07/17 TIME: 15:58 Assessment/Plan Assessment/Plan Chief Complaint/Hosp Course IMPRESSION: 1. Atrial fibrillation with rapid ventricular response -now improved on increased CCB 2. Chest pain. Described more as palpitations, likely secondary to the patient's atrial fibrillation with rapid ventricular response.-negative troponin's/NL EF by echo 3. Congestive heart failure by chest x-ray and by exam with preserved left ventricular ejection fraction by 2D echo. 4. Diastolic heart failure, acute on chronic. 5. Hypertension, under reasonable control. 6. Vaginal bleeding. 7. Superficial thrombosis by venous tamanna Recc -Tele -Continue diltiazem/xarelto -Continue lasix at d/c but change to po daily -outpatient f/u with me 2-3 weeks Problems: Consultation Date/Type/Reason Admit Date/Time Jan 31, 2017 at 14:11 Initial Consult Date 02/06/2017 Type of Consultation: cardiology Reason for Consultation AF/CHF Referring Provider: RISHI KIM MD Exam/Review of Systems Vital Signs Vitals Vital Signs Date Time Temp Pulse Resp B/P Pulse Ox O2 Delivery O2 Flow Rate FiO2 02/07/17 15:22 98.0 76 18 141/82 97 Intake and Output 02/06/17 02/06/17 02/07/17 15:00 23:00 07:00 Intake Total 920 ml 120 ml Balance 920 ml 120 ml Exam Review of Systems: CONSTITUTIONAL: No fevers, chills. PULMONARY: No sob CARDIOVASCULAR: No chest pain/palpitations GASTROINTESTINAL: No nausea/vomiting. GENITOURINARY: No hematuria/dysuria. MUSCULOSKELETAL: No myagias/arthalgias. PSYCHIATRIC: The patient denies depression. NEUROLOGIC: No weakness Constitutional: alert Psych: no complaints Head: normocephalic ENMT: mucosa pink and moist Neck: jvd, supple Respiratory: diminished breath sounds (at bases/B) Cardiovascular: regular rate and rhythm Gastrointestinal: non-tender, soft Musculoskeletal: muscle tone Extremities: pitting pedal edema (bilateral) Neurological: other (No focal deficits) Results Result Diagram: 02/07/17 0726 02/07/17 0726 Results 24 hrs Laboratory Tests Test 02/07/17 07:26 White Blood Count 9.7 Red Blood Count 5.84 H Hemoglobin 15.1 Hematocrit 48.5 H Mean Corpuscular Volume 83.0 Mean Corpuscular Hemoglobin 25.9 L Mean Corpuscular Hemoglobin Concent 31.1 L Red Cell Distribution Width 14.3 Platelet Count 276 Mean Platelet Volume 11.1 H Neutrophils % 68.6 Lymphocytes % 23.9 Monocytes % 5.2 Eosinophils % 1.8 Basophils % 0.2 Nucleated Red Blood Cells % 0.0 Neutrophils # (Manual) 6.6 Lymphocytes # 2.3 Monocytes # 0.5 Eosinophils # 0.2 Basophils # 0.0 Nucleated Red Blood Cells # 0.0 Sodium Level 137 Potassium Level 4.3 Chloride Level 97 Carbon Dioxide Level 31 Anion Gap 13 Blood Urea Nitrogen 20 Creatinine 0.83 Glucose Level 137 Calcium Level 9.4 Medications Medications Current Medications Ondansetron HCl (Zofran Inj) 4 mg Q6H PRN IV NAUSEA AND/OR VOMITING; Start 01/31 at 18:30 Acetaminophen (Tylenol Tab) 650 mg Q6H PRN PO PAIN LEVEL 1-3 OR FEVER; Start at 18:30 Acetaminophen/ Hydrocodone Bitart ([place] (5/325)) 1 tab Q6H PRN PO MODERATE PAIN LEVEL 4-6; Start 01/31/17 at 18:30 Docusate Sodium (Colace) 100 mg Q12H PRN PO CONSTIPATION Last administered on 20:38; Admin Dose 100 MG; Start 01/31/17 at 18:30 Magnesium Hydroxide (Milk Of Mag) 30 ml DAILY PRN PO CONSTIPATION Last administered on 02/04/17 08:39; Admin Dose 30 ML; Start 01/31/17 at 18:30 Sodium Biphosphate/ Sodium Phosphate (Fleet Enema) [address] CONSTIPATION; Start 01/31/17 at 18:30 Nitroglycerin (Nitroglycerin (Sl Tab) 0.4 Mg) 1 tab Q5M PRN SL ANGINA; Start at 18:30 Lorazepam (Ativan) 1 mg Q4H PRN PO ANXIETY Last administered on 02/01/17 22:54 ; Admin Dose 1 MG; Start 02/01/17 at 23:00 Metoprolol Tartrate (Lopressor) 5 mg Q4H PRN IV HR>110 Hold SBP<100; Start 02/06 at 10:00 Furosemide (Lasix) 20 mg DAILY IV Last administered on 02/07/17 09:29; Admin Dose 20 MG; Start 02/06/17 at 10:00 Diltiazem HCl (Cardizem Cd) 180 mg BID PO Last administered on 02/07/17 09:29; Admin Dose 180 MG; Start 02/06/17 at 21:00 CLAUDETTE RAMIREZ Feb 07, 2017 16:06
[2017-02-07] MEDS ORDERED: DILT180C75 PO (17:09)
[2017-02-07] MEDS ORDERED: RIVA20TA PO (17:09)
[2017-02-07] MEDS ORDERED: FURO40TA4 PO (17:09)
--- NOTE | 2017-02-07 17:11 | DS ---
Date/Time of Note Date/Time of Note DATE: 02/07/17 TIME: 17:09 Discharge Summary Admission/Discharge Info Admit Date/Time Jan 31, 2017 at 14:11 Discharge Date/Time Discharge Diagnosis atrial fibrilation with rapid ventricular response, vaginal bleeding, mild systolic heart failure Patient Condition: Good Consults cardiology, sales coordinator, vascular surgery Procedures 9.1 TTE Conclusions 1. Lower limits of normal systolic function. Normal left ventricular cavity size. Mild hypertrophy of the basal septum. Ejection fraction is visually estimated at 55 %. Tissue Doppler/Mitral Doppler indices are indeterminate in this study due to the presence of atrial fibrillation throughout exam. E/E`=5. 2. There is moderate enlargement of left atrium appreciated best by LA index of 36 ml/m2. 3. There is mild enlargement of right atrium. 4. Normal appearance of the mitral valve. Trace mitral regurgitation. 5. Normal appearance of the tricuspid valve. Estimated peak PA systolic pressure 21 mmHg. There is mild tricuspid regurgitation. 9.3 Procedure: Dilatation and curettage path: -- Simple and focally complex endometrial hyperplasia. -- No malignancy or atypia is identified. 9.4 LE dopplers IMPRESSION: No evidence of a deep vein thrombosis within the bilateral lower extremities. Superficial chronic-appearing thrombosis of the left greater saphenous vein. CT PE protocol 9.4 IMPRESSION: No CT evidence for pulmonary central embolus. There is limited visualization of the subsegmental pulmonary arteries. There is no aortic dissection. Atherosclerotic disease. Mosaic attenuation of the lungs could represent mild air trapping. There is a focus of atelectasis/scarring within the lingula. Hepatomegaly and fatty liver. Hx of Present Illness This is a 66-year-old female with a past medical history of hypertension and anxiety, who has been having shortness of breath symptoms going on for the last few days. She also has been feeling some mild palpitations. Denies any headaches or dizziness or loss of consciousness. No upper GI bleeding. No nausea or vomiting. No fevers or chills. She has been complaining, however, of vaginal bleeding for the last few days that appears to be new. She decided to come to the ER today, but not before going to an urgent care because she was complaining of some wheezing symptoms, but denies any history of any asthma. She has also noted some lower extremity swelling as well that appears to be new. When she came in to the ER today, she was found with signs of fluid in her chest x-ray, cardiomegaly with mild interstitial CHF, and was given Lasix in the ER. As well, she was found to be in atrial fibrillation with RVR and was given Cardizem, which helped bring her heart rate down to the normal range. Hospital Course 66 yo F admitted for SOB, found to be in AFib with RVR, LE swelling and with c/ o vaginal bleeding. Regarding vaginal bleeding, pt seen by sales coordinator and underwent D& C with EMB--->path benign. For AFib with RVR, pt started on CCB and HR improved. Given AFib and [id number] score 3 thus full ATC started. Pt also stated she was diagnosed with a blood clot at an OSH within the past few mos. LE doppler revealed superficial blood clot in LLE. Pt seen by vascular surgery. Appeared vein had been previously ligated thus no further intervention was required. New meds from admission: lasix, xarelto, diltiazem Pt to f/u with PCP, cardiology and sales coordinator. Home Meds Active Scripts Furosemide* (Furosemide*) 40 Mg Tablet, 40 MG PO DAILY for 30 Days, #30 TAB Prov:RISHI KIM MD 02/07/17 Diltiazem Hcl* (Cardizem CD*) 180 Mg Cap.sr.24h, 180 MG PO BID for 30 Days, #60 Prov:RISHI KIM MD 02/07/17 Rivaroxaban* (Xarelto*) 20 Mg Tablet, 20 MG PO WITH DINNER for 30 Days, #30 TAB Prov:RISHI KIM MD 02/07/17 Follow-up Plan cardiology/Gustafson within 2 weeks sales coordinator/Jadenoohar within 4 weeks PCP within 2 weeks Primary Care Provider Keron Lei MD Time spent on discharge: > 30 minutes Pending Labs Laboratory Tests Test 02/07/17 07:26 White Blood Count 9.710^3/ul (4.8-10.8) Red Blood Count 5.8410^6/ul (4.20-5.40) Hemoglobin 15.1g/dl (12.0-16.0) Hematocrit 48.5% (37.0-47.0) Mean Corpuscular Volume 83.0fl (82.0-101.0) Mean Corpuscular Hemoglobin 25.9pg (29.0-33.0) Mean Corpuscular Hemoglobin Concent 31.1g/dl (32.0-37.0) Red Cell Distribution Width 14.3% (11.5-14.5) Platelet Count 49558^3/UL (140-415) Mean Platelet Volume 11.1fl (7.4-10.4) Neutrophils % 68.6% (39.0-77.0) Lymphocytes % 23.9% (15.0-51.0) Monocytes % 5.2% (0.0-11.0) Eosinophils % 1.8% (0.0-7.0) Basophils % 0.2% (0.0-2.0) Nucleated Red Blood Cells % 0.0/100WBC (0.0-0.0) Neutrophils # (Manual) 6.610^3/ul (1.7-7.5) Lymphocytes # 2.310^3/ul (0.8-2.9) Monocytes # 0.510^3/ul (0.3-0.9) Eosinophils # 0.210^3/ul (0.0-0.5) Basophils # 0.010^3/ul (0.0-0.1) Nucleated Red Blood Cells # 0.010^3/ul (0.0-0.0) Sodium Level 137mmol/L (135-144) Potassium Level 4.3mmol/L (3.5-5.1) Chloride Level 97mmol/L (97-110) Carbon Dioxide Level 31mmol/L (21-31) Anion Gap 13 (8-16) Blood Urea Nitrogen 20mg/dl (7-20) Creatinine 0.83mg/dl (0.44-1.00) Glucose Level 137mg/dl (70-220) Calcium Level 9.4mg/dl (8.4-10.2) Copies To: CC: ZAYDA MARRUFO MD; CLAUDETTE GUSTAFSON ELLEN MD Feb 07, 2017 17:11
--- NOTE | 2017-02-07 17:58 | PDOCDIS ---
Discharge Instructions DIAGNOSIS Discharge Diagnosis atrial fibrilation with rapid ventricular response, vaginal bleeding, mild systolic heart failure CONDITION Patient Condition: Good HOME CARE INSTRUCTIONS: Special Diet: 2 gm na FOLLOW UP/APPOINTMENTS Follow-up Plan Follow up with: Nir ulloa de: Dr Gustafson/Heart Doctor/Cardiologo in 2 weeks/[place] Office Address [id number] [place] [address] Krishnamurthy/Treatment Coordinator Bishnuogmau in 2 weeks/[place] Office Address [address] [facility] [address] [place] [address] Office Your regular doctor within 2 weeks Morrell mdico habitual dentro de 2 semanas RISHI KIM MD Feb 07, 2017 17:58
[2017-02-07] MEDS: RIVAROXABAN 20 MG TABLET PO SCH (18:51)
== END 2017-02-07 19:00 | disposition home or self-care (01) | DRG 744 ==
LOC: E/R 12:29 → MS4 14:11
PROVIDERS: ADMIT Hospitalist; ATTEND Hospitalist
PROC: 0UDB7ZX Extraction of Endometrium, Via Natural or Artificial Opening, Diagnostic (ICD-10-PCS; principal; 2017-02-02 09:00)
DX: N95.0 Postmenopausal bleeding (principal); I50.33 Acute on chronic diastolic (congestive) heart failure; I48.91 Unspecified atrial fibrillation; I82.812 Embolism and thrombosis of superficial veins of left lower extremity; I11.0 Hypertensive heart disease with heart failure; F41.9 Anxiety disorder, unspecified; I83.12 Varicose veins of left lower extremity with inflammation; I83.11 Varicose veins of right lower extremity with inflammation; N85.00 Endometrial hyperplasia, unspecified; R00.2 Palpitations; Z79.01 Long term (current) use of anticoagulants; Z90.710 Acquired absence of both cervix and uterus
CPT/HCPCS: 36415; 71010; 71275; 76830; 76856; 80048; 80061; 82550; 82553; 83036; 83735; 83880; 84100; 84439; 84443; 84484; 85025; 85378; 85610; 85730; 88305; 93005; 93306; 93970; 94664; 96374; 96375; J1940; J0690; J1100; J1885; J2405; J3010; Q9967

== ENCOUNTER → 2017-02-13 | Outpatient (CLI) | payer BC ==
[~2017-02-13] VITALS: Ht 160 cm; Wt 105.5 kg
[~2017-02-13] MED LIST: DILT180C75 PO; FURO40TA4 PO; RIVA20TA PO
[2017-02-13 14:59] VITALS: BP 146/67; PULSE 83; RESP 18; Ht 160 cm; Wt 105.5 kg
--- NOTE | 2017-02-13 15:38 | PN ---
Date/Time of Note Date/Time of Note DATE: 02/13/17 TIME: 15:34 Outpatient Progress Note Chief Complaint CHF/A. fib/obesity/vaginal bleeding/anxiety HPI CHF/patient was recently admitted with a CHF, patient on Lasix, no shortness of breath at rest, no PND orthopnea, patient has still bilateral ankle edema, A. fib/patient had A. fib with a high ventricular response, patient had a CHF, patient was recently hospitalized, patient feeling better, Obesity/patient morbidly obese, no history of any hypothyroidism, Vaginal bleeding/patient had vaginal bleeding, not on any blood thinner, patient was seen by tar pot man, patient to follow gynecology, Anxiety/patient anxious and nervous, has sometimes difficulty in sleeping, Review of Systems Const: No Fever, no chills, no Wt. loss, no Fatigue, normal appetite, no diaphoresis. Morbidly obese, Eyes: No pain, no discharge, no redness, no visual change, no foreign body. ENT: No pain, no bleeding, no congestion, no sore throat, no dysphagia, no discharge or rhinitis. Lymph: No adenopathy, no tender nodes, no lymphedema. Resp: Occasional SOB, no cough, no sputum, no wheezing, no chest pain. CV: No chest pain, no palpitaions, no JACKSON, no PND, bilateral ankle edema. GI: Normal appetite, no pain, no nausea, no vomiting, no diarrhea, no blood, no constipation. : No frequency, no urgency, no dysuria, no hematuria, no flank pain, no discharge, no bleeding. Musc: No back pain, no neck pain, no knee pain, no restricted ROM. Skin: No rash, no skin lesions, no erythema, no laceration, no bruising, no pruritus. Neuro: No NAIR, no dizziness, no syncope, no seizure, no focal-weakness. Endo: No polyuria, no polydypsia, no dry-skin, no temp-intolerance. Psych: No hallucinations, no depression, no anxiety, no suicidal ideation. Ext: Bilateral ankle edema, no pain, no ulcer, no weakness. Physical Exam Vital Signs Date Time Temp Pulse Resp B/P Pulse Ox O2 Delivery O2 Flow Rate FiO2 02/13/17 14:59 98.4 83 18 146/67 96 Room Air General Appearance: A 66 year-old female who appears well-developed, well- nourished, in no acute distress. HEENT: Head normocephalic, atraumatic. Pupils equal, round, reactive to light and accommodate. Sclerae are no jaundice. Nasal turbinates pink without erythema or nasal discharge. Mucous membranes pink and moist without lesions. Oropharynx clear without any exudate or discharge. NECK: Supple. Trachea midline, No thyromegaly, No cervical lymphadenopathy, No mass, No carotid bruits, No JVD, Carotid pulses 2+ bilaterally. PULMONARY: Clear to auscultaion bilaterally, No retractions, Chest expansion symmetric bilaterally, no rales, no ronchi, no dulness on percussion. CARDIAC: Normal SI and S2, iRegular rate and rythm, no murmur, gallop, or rub. No S3, no S4, GASTROINTESTINAL: Abdomen is soft, non-tender, Non Rigid, No distention, Positive bowel sounds x4 quadrants, Liver normal. SKIN: Warm, dry, no rash, no bruise, no echmosis. EXTREMITIES: Bilateral lower extremities mild to moderate edema, no phlabitus, pulse palpable, no contracture. MUSCULOSKELETAL: Spine Normal, Non-tender, Normal range of motion, No swelling, no deformity, no clubbing, or cyanosis, the patient has no edema to bilateral lower extremities, dorsalis pedis pulses palpable bilaterally. NEUROLOGIC: The patient is awake, alert, oriented, responding to yes/no questions appropriately, moving all extremities, cranial nerve intact, normal strenght, normal power, normal coordination, normal gait. Allergies Coded Allergies: No Known Allergy (Unverified , 01/31/17) PMH ASHD/CHF/A. fib with high ventricular response/vaginal bleeding/anxiety/morbid obesity Social Hx No smoking no drinking, Family Hx Noncontributory, Assessment/Plan Impression CHF improving A. fib controlled rate Morbid obesity Vaginal bleeding Anxiety Plan Patient education done about above diseases, patient has all medication, patient does not need any refill, Patient to follow with the primary care physician, and cardiology and [employer], Patient instructed to reduce fluid intake, and continue Lasix, Patient also encouraged to lose weight, Patient encourage if any symptoms like PND orthopnea or increased heart rate to contact primary care physician's or come to the clinic, Medications Home Meds Active Scripts Furosemide* (Furosemide*) 40 Mg Tablet, 40 MG PO DAILY for 30 Days, #30 TAB Prov:RISHI KIM MD 02/07/17 Diltiazem Hcl* (Cardizem CD*) 180 Mg Cap.sr.24h, 180 MG PO BID for 30 Days, #60 Prov:RISHI KIM MD 02/07/17 Rivaroxaban* (Xarelto*) 20 Mg Tablet, 20 MG PO WITH DINNER for 30 Days, #30 TAB Prov:RISHI KIM MD 02/07/17 PEE ALEXIS MD Feb 13, 2017 15:38
== END | disposition home or self-care (01) ==
LOC: DCC 14:52
PROVIDERS: ATTEND Internal Medicine
DX: I50.9 Heart failure, unspecified (principal); I48.91 Unspecified atrial fibrillation; E66.01 Morbid (severe) obesity due to excess calories; Z68.41 Body mass index [BMI] 40.0-44.9, adult; N93.9 Abnormal uterine and vaginal bleeding, unspecified; F41.9 Anxiety disorder, unspecified

== ENCOUNTER 2017-02-25 14:51 | Outpatient (CLI) | payer BC ==
[~2017-02-25] VITALS: Ht 160 cm; Wt 105.0 kg
[2017-02-25 14:55] VITALS: BP 134/75; PULSE 93; RESP 18; Ht 160 cm; Wt 105.0 kg
--- NOTE | 2017-02-25 15:16 | PN ---
Date/Time of Note Date/Time of Note DATE: 02/25/17 TIME: 15:13 Outpatient Progress Note Chief Complaint ASHD/A. fib/anxiety/obesity HPI ASHD/no chest pain, no PND orthopnea, patient does have a history of congestive heart failure, no ankle edema, no difficulty in sleeping, no chest pain or pressure, A. fib/no palpitations syncope, no bruises, no lightheadedness, no side effect of medication, Anxiety/patient anxious and nervous, Obesity patient morbidly obese, no history of hypothyroidism, Review of Systems Const: No Fever, no chills, no Wt. loss, no Fatigue, normal appetite, no diaphoresis. Eyes: No pain, no discharge, no redness, no visual change, no foreign body. ENT: No pain, no bleeding, no congestion, no sore throat, no dysphagia, no discharge or rhinitis. Lymph: No adenopathy, no tender nodes, no lymphedema. Resp: No SOB, no cough, no sputum, no wheezing, no chest pain. CV: No chest pain, no palpitaions, no JACKSON, no PND, no edema. GI: Normal appetite, no pain, no nausea, no vomiting, no diarrhea, no blood, no constipation. : No frequency, no urgency, no dysuria, no hematuria, no flank pain, no discharge, no bleeding. Musc: No bone/joint pain, no back pain, no neck pain, no knee pain, no restricted ROM. Skin: No rash, no skin lesions, no erythema, no laceration, no bruising, no pruritus. Neuro: No NAIR, no dizziness, no syncope, no seizure, no focal-weakness. Endo: No polyuria, no polydypsia, no dry-skin, no temp-intolerance. Psych: No hallucinations, no depression, no anxiety, no suicidal ideation. Ext: No edema, no pain, no ulcer, no weakness. Physical Exam Vital Signs Date Time Temp Pulse Resp B/P Pulse Ox O2 Delivery O2 Flow Rate FiO2 02/25/17 14:55 98.1 93 18 134/75 95 Room Air General Appearance: A 66 year-old female who appears well-developed, well- nourished, in no acute distress. Patient morbidly obese, HEENT: Head normocephalic, atraumatic. Pupils equal, round, reactive to light and accommodate. Sclerae are no jaundice. Nasal turbinates pink without erythema or nasal discharge. Mucous membranes pink and moist without lesions. Oropharynx clear without any exudate or discharge. NECK: Supple. Trachea midline, No thyromegaly, No cervical lymphadenopathy, No mass, No carotid bruits, No JVD, Carotid pulses 2+ bilaterally. PULMONARY: Clear to auscultaion bilaterally, No retractions, Chest expansion symmetric bilaterally, no rales, no ronchi, no dulness on percussion. CARDIAC: Normal SI and S2, iRegular rate and rythm, no murmur, gallop, or rub. No S3-S4, GASTROINTESTINAL: Abdomen is soft, non-tender, Non Rigid, No distention, Positive bowel sounds x4 quadrants, Liver normal. SKIN: Warm, dry, no rash, no bruise, no echmosis. EXTREMITIES: Bilateral lower extremities normal, no edema, no phlabitus, pulse palpable MUSCULOSKELETAL: Spine Normal, Non-tender, Normal range of motion, No swelling, no deformity, no clubbing, or cyanosis, the patient has no edema to bilateral lower extremities, dorsalis pedis pulses palpable bilaterally. NEUROLOGIC: The patient is awake, alert, oriented, responding to yes/no questions appropriately, moving all extremities, cranial nerve intact, normal strenght, normal power, normal coordination, normal gait. Allergies Coded Allergies: No Known Allergy (Unverified , 01/31/17) [facility] ASHD/CHF/A. fib/anxiety/obesity/history of vaginal bleeding Social Hx No smoking or drinking, Family Hx Noncontributory Assessment/Plan Impression ASHD/history of CHF A. fib Anxiety Obesity History of vaginal bleeding Plan Patient education done, patient supposed to follow with the primary care physician, patient has all the medication except Lasix, Will order Lasix 40 mg daily #100, We will also add KCl 8 MBq daily #100, Patient to lose weight, increase activity, patient education done any chest pain or shortness of breath or severe weight gain or ankle edema to contact primary care physician for ER, Patient high risk for repeated admission, Medications Home Meds Active Scripts Furosemide* (Furosemide*) 40 Mg Tablet, 40 MG PO DAILY for 30 Days, #30 TAB Prov:RISHI KIM MD 02/07/17 Diltiazem Hcl* (Cardizem CD*) 180 Mg Cap.sr.24h, 180 MG PO BID for 30 Days, #60 Prov:RISHI KIM MD 02/07/17 Rivaroxaban* (Xarelto*) 20 Mg Tablet, 20 MG PO WITH DINNER for 30 Days, #30 TAB Prov:RISHI KIM MD 02/07/17 PEE ALEXIS MD Feb 25, 2017 15:16
== END 2017-02-25 17:00 | disposition home or self-care (01) ==
LOC: DCC 14:51
PROVIDERS: ATTEND Internal Medicine
DX: I25.10 Atherosclerotic heart disease of native coronary artery without angina pectoris (principal); I50.9 Heart failure, unspecified; I48.91 Unspecified atrial fibrillation; F41.9 Anxiety disorder, unspecified; E66.9 Obesity, unspecified
CPT/HCPCS: G0463